=== PATIENT | male | born 1960 | race Caucasian/White ===

== ENCOUNTER 2023-04-27 00:32 | Emergency (ER) | payer OTHER, SELFPAY ==
--- NOTE | ~2023-04-27 | CT_ITS ---
NAME: Willard Miller DATE OF : 64 EXAMINATION: CTA chest PE protocol DATE: 04/27/23 at 3:52 AM INDICATION: Unresponsive. TECHNIQUE: Computed tomography angiography (CTA) of the chest was performed with 100 mL Omnipaque-350 intravenous contrast timed to evaluate the pulmonary arteries. Coronal maximum intensity projection 3D-reconstructions were created by the technologist. Automated exposure control and iterative reconst ruction technique were employed. The dose-length product was 472 mGy-cm. COMPARISON: None. FINDINGS: There is smooth septal thickening in the lungs with an upper lung predominance. There are a irspace and groundglass opacities in the upper lobes and lower lobes with a dependent predominance. T here are groundglass opacities in right middle lobe. No pleural effusion. The heart size is normal. T here are coronary artery calcifications. No pericardial effusion. There is no pulmonary embolus. The endotracheal tube tip is 4.3 cm above the jose. There is mild thoracic spondylosis. IMPRESSION: 1. No pulmonary embolus. 2. Extensive pneumonia in the lungs with a posterior predominance. 3. Mild pulmonary edema. Reviewed, dictated and finalized at location A.
--- NOTE | ~2023-04-27 | CT_ITS ---
NAME: Willard Miller DATE OF : 64 EXAMINATION: CT brain wo con DATE: 04/27/2023 at 3:48 AM INDICATION: Unresponsive. TECHNIQUE: Computed tomography (CT) of the head was performed without intravenous contrast. The mA wa s adjusted according to patient size. Iterative reconstruction technique was employed. The dose-lengt h product was 681 mGy-cm. 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 There is no intracranial hemorrhage, acu te infarction, or abnormal intracranial mass lesion. The ventricles are normal in size. There is muco melissa thickening in the paranasal sinuses. There is thickening and sclerosis of the schofield of the spheno id and right maxillary sinuses. There is sclerosis and erosions of the schofield of the right ethmoid sin uses. These findings are consistent with chronic sinusitis. There is a trace right mastoid effusion. The orbits are normal. IMPRESSION: 1. 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 2. Chronic sinusitis. Reviewed, dictated and finalized at location A.
--- NOTE | ~2023-04-27 | XR_ITS ---
NAME: Willard Miller DATE OF : 64 EXAMINATION: XR chest ET placement DATE: 04/27/23 at 1:53 AM INDICATION: Intubation. TECHNIQUE: A single frontal view of the chest was obtained. COMPARISON: None. FINDINGS: There are airspace and interstitial opacities in all lung zones bilaterally with a perihila r and upper lung predominance. No pleural effusion or pneumothorax. The heart size is normal. The end otracheal tube tip is 7.4 cm above the jose. IMPRESSION: 1. Diffuse lung disease, consistent with a combination of pneumonia and pulmonary edema. 2. Endotracheal tube tip 7.4 cm above the jose. Reviewed, dictated and finalized at location A. IMPRESSION: 1. Diffuse lung disease, consistent with a combination of pneumonia and pulmona ry edema. 2. Endotracheal tube tip 7.4 cm above the jose.
--- NOTE | ~2023-04-27 | XR_ITS ---
Willard Miller 64 04/27/23 2:40 AM EXAMINATION: XR chest 1V portable DATE: 04/27/2023 INDICATION: Intubation. TECHNIQUE: A single frontal view of the chest was obtained on 2 radiographs. COMPARISON: Chest single view at 1:53 AM FINDINGS: There are airspace opacities and interstitial opacities in all lung zones bilaterally with a perihilar and upper lung predominance. No pleural effusion or pneumothorax. The heart size is dali l. The endotracheal tube tip is 8.3 cm above the jose. IMPRESSION: 1. Stable diffuse lung disease, consistent with moderate pulmonary edema versus pneumonia. 2. Endotracheal tube tip 8.3 cm above the jose. Reviewed, dictated and finalized at location A.
--- NOTE | 2023-04-27 01:40 | ECG_ITS ---
Measurements Intervals [place] Rate: 84 P: 53 NV: 138 QRS: -51 QRSD: 105 T: 85 QT: 357 QTc: 422 Interpretive Statements SINUS RHYTHM LEFT AXIS DEVIATION ANTEROSEPTAL INFARCT, AGE INDETERMINATE BORDERLINE ST-T WAVE ABNORMALITY- HIGH LATERAL LEADS BASELINE ARTIFACT- II ,III, AVF, V4-V6 ABNORMAL ECG NO PREVIOUS ECG AVAILABLE FOR COMPARISON Electronically Signed On 04-27-2023 11:12:37 CDT by Reggie Guo D.O.
[2023-04-27 02:10] VITALS: PULSE 84; O2SAT 99
--- NOTE | 2023-04-27 03:57 | ED.CPR ---
HPI - CPR General Stated Complaint: Unresponsive Time Seen by Provider: 04/27/23 03:56 Source: EMS Mode of arrival: EMS Limitations: physical limitation History of Present Illness HPI narrative: This is a 62-year-old male past went into cardiac arrest walked over to EMS facility and collapsed CPR was initiated by EMS staff and patient did respond with a pulse epinephrine was given and the patient was in respiratory distress and was being bagged upon arrival to the emergency department. No known history patient was by himself and did have a and his name was retrieved otherwise on arrival respiratory distress was being bagged and he was in V-tach with a pulse in the ER. Is in respiratory distress and did have elevated in place and the patient was subsequently intubated is placed on a vent. complaint: collapsed during rest Onset (ago): hour(s) Timing confirmed by: other Place: other Bystander CPR performed: Yes AED applied by bystander/welder first class: No Shock advised: No Initial findings in the field: unresponsive Associated injuries: No Associated symptoms: shortness of breath Treatments prior to arrival: chest compressions and epinephrine mgs # Related Data Allergies Allergy/AdvReac Type Severity Reaction Status Date / Time No Known Allergies Allergy Unknown Unverified 12/02/13 12:39 Review of Systems Review of Systems: ROS unobtainable: Yes unobtainable due to medical condition PMFSH Past Medical History Medical History Unknown family medical history Exam Const: General: ill appearing Nutritional Appearance: thin Neck: Neck: normal visual inspection and no lymphadenopathy Chest: Chest palpation & inspection: normal inspection of the chest Resp: Effort & Inspection: tachypneic Auscultation: breath sounds absent Cardio: Rhythm: abnormal rhythm GI: Auscultation: normal bowel sounds Skin: General skin exam: pallor Neuro: General: no focal motor deficits Other: unresponsive Extrem: General: no pedal edema Psych: Other: unresponsive Course Course Emergency Course: patient brought in via EMS initially cardia arrest with CPR initiated at the scene, the patient had an LMA and was being bagged patient on the monitor had a stable blood pressure but his heart rate showed V-tach and amiodarone 150mg was administered, subtotally is heart rate dropped into the 30s and dose of ABO to roll was administered. The patient upon numerous attempts was intubated and placed on a ventilator. Patient had blood work performed which showed that he had blood gases 710 with pCO2 50 with bicarb 15.6 PO2 64, EKG performed after the patient was resuscitated and ventilated and had a rate of 84 was sinus rhythm. White blood cell count was 15 9 lactic acid 9.5 the D-dimer is greater than 30 by time you. Patient started on amiodarone drip, was given dose of Zosyn [address] scan of the brain and CTA performed because of elevated troponin and respiratory distress. patient received 1mg of atropine. Received 150 of amiodarone and currently on propofol 50 mics per kg per minute. Spoke to cloth layer which accepted the patient at [facility] for transfer. Procedures ABG Interpretation ABG Interpretation 1: ABG Results: 7.1 0/ 50/15.6/PO2 of 64 Interpretation: abnormal and respiratory acidosis Intubation Intubation #1: Intubation Date: 04/27/23 Intubation Time: 04:08 Time out performed: Yes sedative: Etomidate Mg Given: 40 paralytic: Succinylcholine Mg Given: 260 Laryngoscope: Raymond Tube Size (cm): 7.0 Method of Intubation: orotracheal Number of Attempts: 3 Tube Secured Depth (cm): 25 Tube Secured Location: lips Tube Placement Confirmation: visualized tube passing through cords Patient Tolerated Procedure: well and no complications C
[2023-04-27 04:00] VITALS: PULSE 71; O2SAT 99
[2023-04-27 04:14] LABS: Alanine Aminotransferase 43 U/L (16-63); Albumin Level 3.3 g/dL (3.4-5.0); Alkaline Phosphatase 175 U/L (46-116); Anion Gap 18 mmol/L (8-16); Aspartate Amino Transferase 73 U/L (15-37); Base Excess ABG -14.2 mmol/L (0-2); Bilirubin,Total 0.5 mg/dL (0.00-1.00); Blood Urea Nitrogen 11 mg/dL (7-18); Calcium 8.7 mg/dL (8.5-10.1); Carbon Dioxide 20 mmol/L (21-32); Chloride 97 mmol/L (98-108); Device VENTILATOR; Estimated Glomerular Filt Rate 48; Glucose 264 mg/dL (70-99); HCO3 ABG 15.6 mmol/L (23-29); Lipase 38 U/L (16-77); Magnesium 2.7 mg/dL (1.8-2.4); Modified Allen's Test Pass; NT Pro B Type Natriuretic Pept 161 pg/mL (0-125); Osmolality Calculated 288 mOsm/kg (285-295); Oxygen Content ABG 19.5 %vol (16.0-22.0); Oxygen Saturation ABG 85.7 % (95-97); Oxyhemoglobin 84.3 % (94-100); PCO2 ABG 50.9 mmHg (35-45); PO2 ABG 64.3 mmHg (80-90); Potassium 3.7 mmol/L (3.5-5.1); Site Drawn RIGHT RADIAL; Sodium 135 mmol/L (136-145); Total Hemoglobin 16.5 g/dL (12.0-18.0); Troponin I 39.3 ng/L (0.00-60.4)
--- NOTE | 2023-04-27 04:22 | PC.NURSE ---
See down time paperwork for pt on arrival per EMS.
[2023-04-27] MEDS: SODIUM CHLORIDE 0.9% IV 1,000 ML 999 ML IV CONT (04:30)
[2023-04-27 04:31] LABS: Basophils Absolute Auto 0.13 K/mm3 (0.00-0.10); Basophils Percent Auto 0.8 % (0.0-1.0); Eosinophils Absolute Auto 0.62 K/mm3 (0.02-0.50); Eosinophils Percent Auto 3.9 % (1.0-6.0); Hematocrit 46.8 % (40.0-54.0); Hemoglobin 14.7 g/dL (14.0-18.0); Immature Granulocyte Percent A 1.9 % (0.0-0.0); Lymphocytes Absolute Auto 2.64 K/mm3 (1.10-4.50); Lymphocytes Percent Auto 16.6 % (18.0-42.0); Mean Corpuscular HGB Conc 31.4 g/dL (32-36); Mean Corpuscular Hemoglobin 30.4 pg (27.0-31.0); Mean Corpuscular Volume 96.9 fL (78.0-102.0); Mean Platelet Volume 9.2 fl (8.7-11.0); Monocytes Absolute Auto 0.85 K/mm3 (0.10-0.90); Monocytes Percent Auto 5.3 % (2.0-11.0); Neutrophils Absolute Auto 11.36 K/mm3 (1.70-7.20); Neutrophils Percent Auto 71.5 % (50.0-70.0); Platelet Count Result 257 K/mm3 (150-420); Prothrombin Time 10.9 Seconds (9.64-11.0); Red Blood Count 4.83 M/mm3 (4.70-6.10); Red Cell Distribution Width 13.9 % (11.6-14.4); White Blood Count 15.9 K/mm3 (4.8-10.8)
[2023-04-27 04:33] LABS: Lactic Acid Reflex 9.5 mmol/L (0.4-2.0)
[2023-04-27 06:53] LABS: Reflex Lactic Acid Yes or No No Lactic Reflex
== END 2023-04-27 05:45 | disposition short-term general hospital (02) ==
PROVIDERS: Emergency Provider Emergency Medicine
DX: I47.20 Ventricular tachycardia, unspecified (principal); R06.03 Acute respiratory distress
CPT/HCPCS: 31500; 36415; 36600; 70450; 71045; 71275; 80053; 82805; 83605; 83690; 83735; 83880; 84484; 85025; 85380; 85610; 85730; 93005; 96365; 96366; 96375; 99291; J0282; J0330; J0461; J2543; J2704; J7030; J7050; Q9967

== ENCOUNTER 2023-04-27 06:30 | Inpatient (IN) | payer OTHER, SELFPAY ==
[2023-04-27] VITALS (76 sets, daily range): BP systolic 78–170; BP diastolic 41–105; PULSE 48–83; RESP 23–35; TEMP 35–37.1; O2SAT 69–99; BMI 22.4
--- NOTE | ~2023-04-27 | XR_ITS ---
EXAMINATION: XR abdomen gastric tube insert DATE: 04/27/2023 07:37 INDICATION: Orogastric tube insertion TECHNIQUE: A supine view of the abdomen and lower chest was obtained for evaluation of feeding tube placement. COMPARISON: None. FINDINGS: Orogastric tube tip in proximal side port in the body of the stomach. There are gas-filled loops of c olon throughout the visualized upper abdomen. Heart size is normal. IMPRESSION: 1. Orogastric tube in the stomach. Reviewed, dictated and finalized at location B.
--- NOTE | ~2023-04-27 | CT_ITS ---
EXAMINATION: CTA UE LT DATE: 04/30/2023 15:51 INDICATION: Left upper extremity ischemia TECHNIQUE: Computed tomographic angiography (CTA) of the left upper extremity was performed with 100 mL Omnipaque 350 intravenous contrast. Automated exposure control and iterative reconstruction techni que were employed. The dose-length product was 1333.88 mGy-cm. COMPARISON: None. FINDINGS: There is a significant amount of relatively dense contrast within the veins of the left upper extremi ty greatest at the hand and forearm and extending along the left cephalic vein near its confluence wi th the left subclavian vein. As before this is disproportionate to the minimal amount of arterial con trast in the abrupt transition from dense contrast to negligible contrast at the distal aspect of the cephalic vein suggests this represents stagnant residual contrast related to the earlier contrast in jection from over one hour prior. Contrast is seen extending from the left subclavian artery through the brachial artery and into the proximal radial, ulnar and both anterior and posterior interosseous arteries although the density of contrast significantly less than is seen in the arteries at the prox imal left thigh which are well opacified. There is no discrete stenosis identified along the contrast opacified portion of the arteries in the left upper arm. There is however abrupt cut off of the radi al artery proximally 7 cm distal to the level of the elbow joint. The remaining ulnar and anterior an d posterior interosseous arteries becoming progressively more atretic in the distal forearm ventrally becoming indiscernible with no evident arterial contrast below the level of the wrist joint. No evid ent contrast other arterial or venous seen in the digits at the palmar aspect of the hand again sugge sting the dense contrast at the dorsum of the hand represents residual contrast from the previous inj ection. Consolidation in the dependent left lower lobe with tree-in-bud opacities throughout the remainder of the left lower lobe and in the posterior left upper lobe consistent with aspiration and/or pneumonia . There is a likely unrelated 9 mm left lower lobe nodule with smooth margins and with less than flui d attenuation consistent with a hamartoma.. Small left pleural effusion. The visualized left side of the heart appears normal with no pericardial effusion. Nasogastric tube tip in the body of the stomac h. 1.1 cm left renal cyst. Incidentally noted circumaortic left renal vein. Small amount of ascites i n the deep pelvis. Garcia catheter and some excreted contrast in the decompressed bladder. A rectal tu be is in place. IMPRESSION: 1. No discernible arterial contrast below the level of the wrist and with prominent residual dense c ontrast in the veins at the dorsum of the hand related to the injection. The absence of washout of th e venous contrast greater than one hour following the injection would be consistent with essentially absent perfusion to the hand. There is abrupt cut off of the arterial contrast in the radial artery p roximal 7 cm distal to the elbow suggesting thrombus. The ulnar and both anterior and posterior inter osseous arteries becoming progressively more atretic with no evident arterial contrast below the wris t without a discrete site of occlusion. 2. Aspiration and/or pneumonia in the left lower and to significantly lesser degree the dependent lef t upper lobe. Reviewed, dictated and finalized at location A. IMPRESSION: 1. No discernible arterial contrast below the level of the wrist and with prom inent residual dense contrast in the veins at the dorsum of the hand related to the injection. The absence of washout of the venous contrast greater than one hour following the injection would be consiste
--- NOTE | ~2023-04-27 | XR_ITS ---
Portable chest x-ray Comparison: 04/29/2023 Clinical History: Respiratory failure Findings: Endotracheal tube, NG tube, and right IJ line are in place. Hazy pulmonary disease, with s lightly more complex disease in the perihilar regions, as similar to prior exam. Cardiomediastinal s ilhouette is stable. Bones and soft tissues are unremarkable. Impression: Mild to moderate presumed pulmonary edema pattern, similar to prior exam. Correlate clinically for pn eumonia. Support tubes, as above. Reviewed, dictated and finalized at location . Impression: Mild to moderate presumed pulmonary edema pattern, similar to prior exam. Corre late clinically for pneumonia. Support tubes, as above.
--- NOTE | ~2023-04-27 | XR_ITS ---
EXAMINATION: XR chest 1V portable DATE: 04/27/2023 07:37 INDICATION: Assess endotracheal tube placement TECHNIQUE: frontal view of the chest was obtained. COMPARISON: Chest radiograph dated 04/27/2023 at 2:39 AM FINDINGS: Endotracheal tube tip 7.5 cm above the jose. Nasogastric tube extends below the left hemidiaphragm with distal tip collimated off the study. Diffuse diffuse bilateral airspace opacities with perihilar predominance. No pleural effusion or pneu mothorax. The cardiomediastinal silhouette is normal. IMPRESSION: 1. The tracheal tube 7.5 cm above the jose. Consider advancement by 5 cm. 2. Diffuse bilateral airspace opacities with appearance on prior CT favoring pneumonia over atelectas is. Reviewed, dictated and finalized at location B. IMPRESSION: 1. The tracheal tube 7.5 cm above the jose. Consider advancement by 5 cm. 2. Diffuse bilateral airspace opacities with appearance on prior CT favoring pn eumonia over atelectasis.
--- NOTE | ~2023-04-27 | XR_ITS ---
EXAMINATION: XR chest port-a-cath/central DATE: 04/27/2023 11:04 INDICATION: Central line placement TECHNIQUE: frontal view of the chest was obtained. COMPARISON: Chest radiograph dated 04/27/2023 at 7:20 AM FINDINGS: New right internal jugular central venous catheter with distal tip near the superior cavoatrial junct ion. Endotracheal tube tip 7.3 cm above the jose. Nasogastric tube extends below the left hemidiap hragm with distal tip collimated off the study. Diffuse bilateral airspace opacities with perihilar predominance. No pleural effusion or pneumothorax . Heart size is normal. IMPRESSION: 1. Right internal jugular central venous catheter tip at the caudal superior vena cava. No pneumothor ax. 2. Diffuse central predominant bilateral airspace opacities consistent with pneumonia. 2. Endotracheal tube tip 7.3 cm above the jose. Consider advancement by 5 cm. Reviewed, dictated and finalized at location B. IMPRESSION: 1. Right internal jugular central venous catheter tip at the caudal superior ve na cava. No pneumothorax. 2. Diffuse central predominant bilateral airspace opacities consistent with pne umonia. 2. Endotracheal tube tip 7.3 cm above the jose. Consider advancement by 5 cm.
--- NOTE | ~2023-04-27 | XR_ITS ---
EXAMINATION: XR chest 1V portable Exam Date/Time: 04/29/2023 8:30 CDT HISTORY: Resp Failure Comparison: 04/28/2023. RESULT: Lines, tubes, and devices: Endotracheal tube terminates 5.1 cm above the jose. Subdiaphragmatic NG tube. Right IJ central venous line terminating at the cavoatrial junction. Lungs and pleura: Slightly increased diffuse reticular and reticulonodular opacities. Left lower lauren g nodule. Cardiomediastinal silhouette: Stable. Other: No acute osseous or upper abdominal finding. IMPRESSION: Worsening moderate pulmonary edema. Infection is not excluded. Lines and tubes remain in stable and g ood position. Left lower lung nodule, prior recommendations are unchanged. Reviewed, dictated and finalized at location K. IMPRESSION: Worsening moderate pulmonary edema. Infection is not excluded. Lines and tubes remain in stable and good position. Left lower lung nodule, prior recommendations are unchanged.
--- NOTE | ~2023-04-27 | XR_ITS ---
Portable chest x-ray Comparison: 04/30/2023 Clinical History: Respiratory failure Findings: Endotracheal tube, NG tube, and right IJ line remain in place. Right perihilar consolidati on present, with more mild haziness the left lung base. Cardiomediastinal silhouette is stable. Bone s and soft tissues are unremarkable. Impression: Bilateral pulmonary disease, right worse than left, which could reflect pulmonary edema versus pneumo silva. Correlate clinically. Support tubes, as above. Reviewed, dictated and finalized at location . Impression: Bilateral pulmonary disease, right worse than left, which could reflect pulmona ry edema versus pneumonia. Correlate clinically. Support tubes, as above.
--- NOTE | ~2023-04-27 | XR_ITS ---
EXAMINATION: XR chest 1V portable DATE: 04/28/2023 09:03 INDICATION: Respiratory failure TECHNIQUE: frontal view of the chest was obtained. COMPARISON: Chest radiograph dated 04/27/2023 FINDINGS: Endotracheal tube tip 5.8 cm above the jose. Nasogastric tube extends below the left hemidiaphragm with distal tip collimated off the study. Right internal jugular central venous catheter with distal tip at the caudal superior vena cava. Diffuse increased interstitial pattern throughout both lungs with some improvement in the perihilar a irspace opacities. 1 cm pulmonary nodule at the left lower lung which can be seen but is distorted on the prior CT by respiratory motion. No pleural effusion or pneumothorax. The cardiomediastinal silho uette is normal. Visualized bones and soft tissues are unremarkable. IMPRESSION: 1. Diffuse increased interstitial pattern with interval improvement in perihilar opacities consistent with improving pneumonia and/or pulmonary edema. 2. 1 cm pulmonary nodules at the left lower lung zone assessment of which is limited on the prior nash dy by respiratory motion. Recommend follow-up noncontrast chest CT for further evaluation when the cu rrent acute pulmonary disease has resolved. Reviewed, dictated and finalized at location A. IMPRESSION: 1. Diffuse increased interstitial pattern with interval improvement in perihila r opacities consistent with improving pneumonia and/or pulmonary edema. 2. 1 cm pulmonary nodules at the left lower lung zone assessment of which is li mited on the prior study by respiratory motion. Recommend follow-up noncontrast chest CT for further evaluation when the current acute pulmonary disease has r esolved.
--- NOTE | ~2023-04-27 | CT_ITS ---
CT Scan of the Chest without Contrast: Clinical Indication: Respiratory failure Technique: Contiguous sections were acquired throughout the chest without intravenous contrast. Dose reduction technique was used on this scan by utilizing automated exposure control and iterative recon struction technique. The dose-length product (DLP) was 257.34 mGy-cm. Findings: There is no evidence of any significant mediastinal, hilar or axillary lymphadenopathy. The mediastin al soft tissues appear normal. There is no evidence of pleural or pericardial effusion. There is extensive dense bilateral lower lobe consolidation, compatible with pneumonia and/or atelect asis. There is patchy, somewhat nodular consolidation throughout the aerated right lung and in the ar ea of superior portion of the left lower lobe, consistent with pneumonia. There is a more discrete 1 cm left lower lobe pulmonary nodule (axial image 93), indeterminate. Images through the upper abdomen reveal no abnormalities. Impression: Extensive right lung and left lower lobe pneumonia with associated dense bibasilar atelectasis and/or additional pneumonia. More discrete 1 cm left lower lobe pulmonary nodule, indeterminate. Follow-up exam after interval the rapy advised to assess for persistence of this nodule. If this nodule persists, tissue sampling or PE T/CT could be considered. Reviewed, dictated and finalized at location . Impression: Extensive right lung and left lower lobe pneumonia with associated dense bibasi lar atelectasis and/or additional pneumonia. More discrete 1 cm left lower lobe pulmonary nodule, indeterminate. Follow-up e xam after interval therapy advised to assess for persistence of this nodule. If this nodule persists, tissue sampling or PET/CT could be considered.
--- NOTE | 2023-04-27 05:28 | PC.NURSE ---
04/27/23 0505 Report received from THERESA Peña.
[2023-04-27] MEDS: NOREPINEPHRINE 8 MG/D5W 250 ML 8 MG/250 ML BAG 9.38 MG IV CONT (06:50)
--- NOTE | 2023-04-27 06:51 | ECHO_ITS ---
Patient Info Name: Willard Miller Age: 62 years : 1960 Gender: Male Ht: 71 in Wt: 160 lbs BSA: 1.91 m2 HR: 70 bpm BP: 90 / 66 mmHg Heart Rhythm: Sinus Rhythm Technical Quality: Fair Exam Date: 04/27/2023 11:09 AM Exam Location: Echo Lab Patient Status: Inpatient Admit Date: 04/27/2023 Staff Ordering Physician: Rigo Abbott MD [employer] Strand Operator: Phyllis Ennis RDCS Attending Provider: Rubén Broussard MD Exam Type: CA echo dop color flow w con Study Info Indications - post arrest Complete two-dimensional, color flow and Doppler transthoracic echocardiogram is performed with contrast to opacify the left ventricle and to improve the deliniation of the left ventricle endocardial borders. Contrast/Agitated Saline Contrast/Ag. Saline: Definity Amount: 2.00 ml Administered By: Phyllis Ennis RDCS Existing IV Access: Yes IV Access Condition: patent with no signs of infiltration Summary 1. Technically somewhat challenging exam with patient on ventilator, definity contrast injected. 2. Normal appearing will left ventricular size and systolic contractility with normal ejection fraction. 3. Mildly sclerotic aortic valve otherwise no significant valvular dysfunction. 4. No pericardial. Left Ventricle Left ventricular chamber dimension is normal. Left ventricular systolic function is normal, estimated at 65-70%. The left ventricular diastolic function is normal. Right Ventricle Right ventricular chamber dimension is normal. Right ventricular systolic function is normal. Left Atria Left atrial chamber dimension is normal. Right Atria Right atrial chamber dimension is normal. Aortic Valve The aortic valve is trileaflet. There is mild aortic valve sclerosis. Pulmonic Valve The pulmonic valve is normal. Mitral Valve The mitral valve has normal leaflets. Tricuspid Valve The tricuspid valve leaflets are normal. Pericardium/Pleural The pericardium appears normal. Aorta The aortic root size at the sinus of Valsalva is normal. Left Ventricular Outflow Tract Name Value Normal LVOT 2D LVOT Diameter 1.97 cm LVOT Doppler LVOT Peak Gradient 2 mmHg LVOT Mean Gradient 1 mmHg LVOT VTI 7.89 cm LVOT VTI/AV VTI Ratio 0.89 LVOT Stroke Volume 24.05 ml LVOT CO 1.61 l/min LVOT CI 0.85 L/min/m2 Pulmonic Valve Name Value Normal RVOT Doppler RVOT Peak Gradient 2 mmHg PV Doppler PV Peak Gradient 3 mmHg Mitral Valve Name Value Normal
[2023-04-27] MEDS: FENTANYL 2,500MCG/NS250ML(*CRX 2,500 MCG/250 ML BAG IV CONT (06:58)
--- NOTE | 2023-04-27 07:00 | ECG_ITS ---
Measurements Intervals [place] Rate: 48 P: AR: 0 QRS: -52 QRSD: 91 T: -84 QT: 475 QTc: 427 Interpretive Statements JUNCTIONAL ESCAPE RHYTHM LEFT AXIS DEVIATION PATTERN CONSISTENT WITH PULMONARY DISEASE CANNOT RULE OUT SEPTAL INFARCT, AGE INDETERMINATE BORDERLINE ST-T WAVE ABNORMALITY- INFERIOR LEADS BASELINE ARTIFACT- I, II, III, AVR, AVL, AVF, V1, V3-V6 ABNORMAL ECG COMPARED TO ECG 04/27/2023 02:28:09 JUNCTIONAL ESCAPE RHYTHM NOW PRESENT Electronically Signed On 04-27-2023 11:09:18 CDT by Reggie Guo D.O.
[2023-04-27] MEDS: MIDAZOLAM HCL (*CRX) 2 MG/2 ML VIAL 4 MG IV PUSH (07:20)
[2023-04-27 07:36] LABS: INR 1.2; Prothrombin Time 15.6 Seconds (11.1-14.7)
[2023-04-27 07:37] LABS: Partial Thromboplastin Time 30.4 Seconds (22.3-36.8)
[2023-04-27 07:41] LABS: Lactic Acid Reflex 3.1 mmol/L (0.7-2.0)
[2023-04-27 07:45] LABS: Hematocrit 52.6 % (42.0-52.0); Hemoglobin 16.7 g/dL (14.0-18.0); Mean Corpuscular HGB Conc 31.7 g/dl (32-36); Mean Corpuscular Hemoglobin 30.9 pg (26-34); Mean Corpuscular Volume 97.4 fl (80-100); Mean Platelet Volume 8.9 fl (7.4-10.4); Platelet Count Result 254 k/mm3 (150-375); Red Cell Distribution Width 14.4 % (11.5-14.5); White Blood Count 2.3 K/mm3 (4.5-10.0)
[2023-04-27] MEDS: SODIUM BICARBONATE 8.4% 50 MEQ/50 ML SYRINGE 100 MEQ IV PUSH ×2 (07:45→15:50)
[2023-04-27 07:49] LABS: Alanine Aminotransferase 45 U/L (6-50); Albumin Level 3.2 g/dL (3.5-5.1); Alkaline Phosphatase 132 U/L (38-126); Anion Gap 10 mmol/L (8-16); Aspartate Amino Transferase 98 U/L (17-59); Bilirubin,Total 1.3 mg/dL (0.2-1.3); Blood Urea Nitrogen 19 mg/dL (9-20); Calcium 7.8 mg/dL (8.4-10.2); Carbon Dioxide 12 mmol/L (22-30); Chloride 108 mmol/L (98-107); Creatine Kinase 409 U/L (55-170); Estimated Glomerular Filt Rate 52; Glucose 133 mg/dL (65-110); Magnesium 2.1 mg/dL (1.6-2.3); Potassium 4.5 mmol/L (3.4-5.0); Sodium 130 mmol/L (137-145)
[2023-04-27] MEDS: MIDAZOLAM 100MG/NS 100ML(*CRX) 100 MG/100 ML BAG IV CONT (07:51)
[2023-04-27 07:58] LABS: Alveolar/Arterial O2 Gradient 632.1 mmHg; Base Excess ABG -12.8 mEq/l (+/-2.0); Carboxyhemoglobin 0.3 % THb (0-2.0); Fractional Inspired Oxygen 100 %; HCO3 ABG 15.3 mEq/l (22.0-26.0); Methemoglobin ABG 0.6 %THb (0-1.5); Oxygen Content ABG 19.8 %vol (16.0-22.0); PCO2 ABG 42.3 mmHg (35.0-45.0); PO2 ABG 50.1 mmHg (80.0-100.0); Reduced Hemoglobin 20.2 %THb (0-5.0); Total Hemoglobin 17.9 g/dL (12.0-18.0)
[2023-04-27 08:00] LABS: Oxygen Saturation ABG 75.9 % (95.0-100.0); pH ABG 7.175 (7.350-7.450)
[2023-04-27 08:01] LABS: Device VENTILATOR; Oxyhemoglobin 78.9 % THb (90.0-100.0); Site Drawn LEFT RADIAL
[2023-04-27 08:02] LABS: Arterial Blood Gas PEEP 8 cmH2O; Arterial Blood Gas Tidal Volume 500 ml; Arterial Blood Gas Vent Mode CMV; Arterial Blood Gas Ventilator rate 18 /MIN
[2023-04-27 08:46] LABS: NT Pro B Type Natriuretic Pept 484 pg/mL (19.9-100)
--- NOTE | 2023-04-27 08:58 | ADMGEN ---
This patient, Willard Miller, was admitted to Intensive Care Unit-2 on 04/27/23 at 0615. Patient/family oriented to hospital policies and general routines including ID bracelet, bed and alarms, visiting hours, pain management, procedures, bathroom and other care routines, personal items, smoking policy, room service/diet, and visiting hours. Information on how to activate the Rapid Response Team has been discussed. Patient/Family are encouraged to report perceived risks to care and to ask questions if they do not understand what they are told or what they should do.
[2023-04-27] MEDS: SODIUM BICARBONATE 8.4% 150 MEQ in WATER, STERILE FOR INJECTION 950 ML 50 MEQ IV CONT ×2 (09:00→21:06)
[2023-04-27] MEDS: PIPERACILLN/TAZ 3.375GM/NS50ML 3.375 GM/50 ML BAG IVPB ×3 (09:00→21:05)
[2023-04-27] MEDS: VASOPRESSIN INJ 100 UNITS in DEXTROSE 5% 95 ML IV CONT (09:01)
[2023-04-27] MEDS: SODIUM BICARBONATE 8.4% 50 MEQ/50 ML SYRINGE IV PUSH (09:06)
[2023-04-27] MEDS: ROCURONIUM BROMIDE 50 MG/5 ML VIAL IV PUSH (09:06)
[2023-04-27] MEDS: PANTOPRAZOLE SODIUM IV 40 MG VIAL IV PUSH ×2 (09:06→22:03)
[2023-04-27] MEDS: MINERAL OIL/WHITE PETROLATUM OINTMENT 1 APPLIC EACH EYE ×2 (09:07→22:04)
[2023-04-27 09:10] LABS: Procalcitonin 16.8 ng/mL
[2023-04-27] MEDS: HYDROCORTISONE SODIUM SUCCINATE 100 MG/2 ML VIAL IV PUSH ×3 (09:31→22:04)
[2023-04-27 09:55] LABS: Barbiturate Screen Urine Negative (Negative); Benzodiazepines Screen Urine Positive (Negative)
[2023-04-27 09:56] LABS: Amphetamine Screen Urine Positive (Negative); Cannabinoid Screen Urine Positive (Negative); Cocaine Screen Urine Negative (Negative); Methadone Screen Urine Negative (Negative); Opiate Screen Urine Negative (Negative)
[2023-04-27 10:19] LABS: Cortisol Random 8.59 ug/dL; Phencyclidine Screen Urine Negative (Negative)
[2023-04-27 10:24] LABS: Base Excess ABG -8.3 mEq/l (+/-2.0); Fractional Inspired Oxygen 100 %; HCO3 ABG 21.3 mEq/l (22.0-26.0); Oxygen Content ABG 18.5 %vol (16.0-22.0); PCO2 ABG 59.7 mmHg (35.0-45.0); PO2 ABG 50.7 mmHg (80.0-100.0); PO2 FiO2 Ratio Arterial Blood 0.51 %; Total Hemoglobin 16.7 g/dL (12.0-18.0)
[2023-04-27 10:33] LABS: Oxygen Saturation ABG 75.5 % (95.0-100.0)
[2023-04-27 10:34] LABS: Device VENTILATOR; Oxyhemoglobin 78.8 % THb (90.0-100.0); Site Drawn LEFT RADIAL
[2023-04-27 10:35] LABS: Arterial Blood Gas PEEP 12 cmH2O; Arterial Blood Gas Vent Mode CMV; Arterial Blood Gas Ventilator rate 25 /MIN
[2023-04-27 10:36] LABS: Arterial Blood Gas Tidal Volume 450 ml
--- NOTE | 2023-04-27 10:58 | WPDPROCEDUR ---
Procedures Central Line Placement Right IJ: Central Line Date: 04/27/23 Central Line Time: 09:00 Discussed w/ the patient/family/POA,the placement of a central venous catheter, including its clinical necessity/indication & associated potential risks, benifits and alternatives.: Yes The patient/family/POA understand(s) and acknowledge(s) the need to proceed with central venous catheter insertion as an important element of the patient's clinical management.: Yes Consent: I have discussed with the patient and/or surrogate, the non-emergent placement of a central venous catheter, including its clinical necessity/indication and associated potential risks and complications. The patient and/or surrogate understand(s) and acknowledge(s) the need to proceed with central venous catheter insertion as an important element of the patient's clinical management. Time Out Performed: Yes Patient Position: supine Patient placed on monitor/pulse ox: Yes Provider Prep: mask, sterile gown, sterile gloves, Max. sterile barrier precautions, cap and hand hygiene with conventional soap/water or alcohol based hand rub Central line prep: Povidone-Iodine 1% Sterile US Technique with sterile gel/sterile probe covers: Yes Central line lumen inserted: triple Length (cm): 20 Depth of Insertion (cm): 18 Post Procedure: sutured in place, good blood return, all ports aspirated, flushed, capped, transparent dressing, antimicrobial product and aseptic technique maintained throughout procedure Post procedure x-ray: tip of catheter in good position Patient tolerated procedure: well Complications: none
[2023-04-27 11:11] LABS: Free T4 Free Thyroxine Reflex 0.53 ng/dL (0.78-2.19)
--- NOTE | 2023-04-27 11:12 | WPDCNINT ---
Assessment and Plan Assessment and plan (1) Cardiac arrest: Code(s): I46.9 - Cardiac arrest, cause unspecified Status: Acute Assessment and Plan: It appears the patient presented and EMS facility and collapsed. Received CPR and epinephrine. No documentation available and unknown down time. When arrived in the ER he was being bag ventilated V-tach with pulse. Difficult intubation and required multiple times. Received amiodarone push which bled to sinus bradycardia which was treated with atrial pain. Since then patient has been in sinus rhythm with intermittent junctional bradycardia. He has had runs of V-tach in the ER and in the ICU. Differential diagnosis is broad. CTA negative for PE Serial troponins and echocardiogram ordered Aspirin anticoagulation held due to GI bleed Beta-gail held due to shock Amiodarone infusion was initiated but stopped due to worsening bradycardia and junctional bradycardia Cardiology consulted and discussed with Cardiology Echo is ordered and pending Treatment of sepsis and pneumonia as below Urine drug screen positive for cocaine. Patient also has heavy alcohol use history and may have cardiomyopathy Treatment of respiratory failure and hypoxia as below TTM protocol for anoxic brain injury Treatment of acidosis as below Monitor and treat electrolyte abnormalities (2) Acute respiratory failure: Code(s): J96.00 - Acute respiratory failure, unspecified whether with hypoxia or hypercapnia Status: Acute Assessment and Plan: Acute respiratory failure secondary to cardiac arrest aspiration pneumonia CT scan was negative for PE Ventilator settings reviewed and will increase rate to 28 and tidal volume is at 4:50 a.m. Patient is significantly hypoxic and is currently on 100% FiO2. I will start patient on Nimbex infusion Peep increased to [address] patient in prone position Bronchodilators (3) Sepsis: Code(s): A41.9 - Sepsis, unspecified organism Status: Acute Assessment and Plan: Sepsis secondary to aspiration pneumonia UA negative for UTI Procalcitonin 16.8 Blood cultures have been ordered and sent Empiric Zosyn (4) V tach: Code(s): I47.20 - Ventricular tachycardia, unspecified Status: Acute Assessment and Plan: See above (5) Aspiration pneumonia: Code(s): J69.0 - Pneumonitis due to inhalation of food and vomit Status: Acute Assessment and Plan: Patient vomited on presentation now has bilateral consolidation suggestive of pneumonia which is likely aspiration Treatment as above (6) Shock: Code(s): R57.9 - Shock, unspecified Status: Acute Assessment and Plan: Patient likely has a multifactorial shock secondary to sepsis and cardiogenic Patient had received more than 3.5 L of fluid prior to coming to the ICU. He does have worsening infiltrate and hypoxia Will limit further fluid boluses at this time and use cautious IV fluids with bicarbonate Continue Levophed vasopressin and if needed epinephrine Stress dose hydrocortisone Treat acidosis Due to worsening shock and bradycardia patient's goal temperature was changed from 33-36 degrees C for therapeutic hypothermia. Amiodarone has also been discontinued due to bradycardia and worsening shoc (7) Hypothyroidism: Code(s): E03.9 - Hypothyroidism, unspecified Status: Acute Assessment and Plan: Patient's TSH was 81.7 T4 0.53 Patient does not have any known history of hypothyroidism and does not appear to be in myxedema coma Will start levothyroxine at 50 mcg IV q.day Will also start hydrocortisone for shock and low cortisol level (8) Anoxic brain injury: Code(s): G93.1 - Anoxic brain damage, not elsewhere classified Status: Acute Assessment and Plan: I am not sure how long was a down time as I was not able to obtain that information ER or EMS but patient when arrived in the ER was obtunded and claire
[2023-04-27] MEDS: CISATRACURIUM BESYLATE 200 MG in DEXTROSE 5% 80 ML 6.57 ML IV CONT (11:38)
[2023-04-27 11:44] LABS: Glucose Point of Care 117 mg/dl (65-105)
--- NOTE | 2023-04-27 11:44 | PM.CNCAR ---
Assessment and Plan Assessment and plan (1) Cardiac arrest: Code(s): I46.9 - Cardiac arrest, cause unspecified Status: Acute Plan This is a 62-year-old man status post ventricular tachycardia arrest and resuscitation with difficult intubation in the referring hospital's emergency room. He is unresponsive on ventilator support and requiring pressor support at this time. His cardiac rhythm looks like a junctional rhythm with a heart rate that is in the high 50s and low 60s. This is a hemodynamically acceptable rhythm. His laboratory data is remarkable for obvious hypothyroidism with a very high TSH and low T4 level. He is a gentleman that does not otherwise seek medical attention he according to the family smokes heavily and drinks alcohol heavily as well. His labs also showed his drug screen was positive for both cocaine and marijuana. At this point aggressive supportive care is indicated which is already being provided. He at this point does not require any specific antiarrhythmic therapy and in my opinion does not require a pacemaker as his junctional rhythm is not slow and he is hemodynamically perfusing well at this point. His prognosis for recovery is obviously in question since he was in VT arrest for some time and his intubation in the emergency department was rather difficult. Unfortunately a significant significant anoxic brain injury is likely to be present James Forbes MD [facility] History of Present Illness History of Present Illness Consult date/time: 04/27/23 11:44 Reason For Visit: Unknown Narrative: This is a 62-year-old man I am seeing at the request of the resource recovery specialist for consultation following resuscitation from cardiac arrest. The history on this case is not entirely complete however what we know is that he was transferred here this morning after being resuscitated out of ventricular tachycardia in the emergency room up in [place]. The family in terms of the mother and the sister are in the room are with me at this time they indicate he lives next door to a EMS facility and that he went there in the middle of the night reporting symptoms of dyspnea. Apparently while he was there he collapsed and experienced cardiac arrest. The chart indicates that he was brought to the emergency room in [place] and was in ventricular tachycardia at that time. According to the records he received intravenous amiodarone in the emergency room after which she was in a narrow QRS rhythm but was bradycardic received some atropine. Then there was a somewhat prolonged effort to intubate the this patient when he was successfully intubated he was then transferred to [facility] for further evaluation and management. His electrocardiogram now shows what appears to be a junctional rhythm with a heart rate of 60 and he is receiving pressure support as well as cooling blanket per protocol. He is intubated on ventilator support and is unresponsive. Review of Systems Review of Systems: ROS unobtainable: Yes unobtainable due to endotracheal tube PMFSH Past Medical History Medical History (Updated 04/27/23 @ 11:34 by Rigo Abbott MD) Cancer of sinus History of radiation therapy Unknown family medical history Family History Family History (Updated 04/27/23 @ 11:19 by Rigo Abbott MD) Other Unknown family medical history Social History Social History (Updated 04/27/23 @ 11:19 by Rigo Abbott MD) Social History: Smokes 1-2 pack per day for more than 40 years, drinks alcohol daily, uses marijuana, past history of cocaine use Meds Home Medications and Allergies Allergies Allergy/AdvReac Type Severity Reaction Status Date / Time No Known Allergies Allergy Unknown Unverified 12/02/13 12:39 Vital Signs Vital Signs - 24 hr 04/27/23 07:00 04/27/23 07:42 04/27/23 06:58 Temperature Pulse Rate 50 L 59 L 50 L Respiratory Rate 26 H Blood Pressure Pulse Oximetry 92 70 L Oxygen Delivery Mec
[2023-04-27] MEDS: CISATRACURIUM BESYLATE 20 MG/10 ML VIAL 15 MG IV PUSH (11:46)
[2023-04-27] MEDS: NOREPINEPHRINE 8 MG/D5W 250 ML 8 MG/250 ML BAG 56.25 MG IV CONT (11:46)
--- NOTE | 2023-04-27 11:47 | ECG_ITS ---
Measurements Intervals [place] Rate: 68 P: [place]: 0 QRS: 82 QRSD: 103 T: -5 QT: 442 QTc: 471 Interpretive Statements ACCELERATED JUNCTIONAL RHYTHM CANNOT RULE OUT SEPTAL INFARCT, AGE INDETERMINATE ST-T WAVE ABNORMALITY IN INF/LAT LEADS- CONSIDER ISCHEMIA ABNORMAL ECG COMPARED TO ECG 04/27/2023 06:58:10 HEART RATE HAS INCREASED ST-T WAVE ABNORMALITY NOW PRESENT Electronically Signed On 04-27-2023 13:17:51 CDT by Reggie Guo D.O.
--- NOTE | 2023-04-27 12:08 | PCDIET ---
Patient currently NPO. Tube feeding recommendations: Vital AF 1.2 at 20 ml/hr advance by 10 ml q 4 hours to goal rate of 50 ml/hr. Tube feedings at 50 ml/hr providing 1320 kcals/83 gms protein/892 ml water. (~70% kcal needs and 94% protein needs) Flush 30 ml q 4 hours. Will follow in ICU rounds and reassess every Sunday and Sunday.
[2023-04-27] MEDS: PERFLUTREN LIPID MICROSPHERES 1.5 ML VIAL DILUTED TO 10 ML TOTAL VOLUME IV PUSH (12:45)
--- NOTE | 2023-04-27 13:02 | IVDEFINITY ---
Prior to administration of IV Definity the patient was educated on the risks and benefits of the imaging enhancing agent including potential adverse side effects. The patient verbalized understanding. Allergies were verified. No exclusion criteria were identified and at least one of the following inclusion criteria were met: 1) physician request, 2) patient technically difficult to image (per the [place] [employer]chocardi[employer] guidelines of two or more segments not discernable within the apical view), or 3) questionable left ventricular function. ?
[2023-04-27] MEDS: LEVOTHYROXINE SODIUM INJ 100 MCG/5 ML VIAL 50 MCG IV PUSH (13:04)
[2023-04-27] MEDS: CENTRAL LINE FLUSH 10 ML IV PUSH ×2 (13:06→22:04)
[2023-04-27 13:24] LABS: Hematocrit 47.9 % (42.0-52.0); Hemoglobin 15.4 g/dL (14.0-18.0); Mean Corpuscular HGB Conc 32.2 g/dl (32-36); Mean Corpuscular Hemoglobin 30.6 pg (26-34); Mean Corpuscular Volume 95.2 fl (80-100); Mean Platelet Volume 8.8 fl (7.4-10.4); Platelet Count Result 178 k/mm3 (150-375); Red Blood Count 5.03 M/mm3 (4.6-6.20); Red Cell Distribution Width 14.5 % (11.5-14.5); White Blood Count 2.3 K/mm3 (4.5-10.0)
[2023-04-27 13:36] LABS: Creatine Kinase 404 U/L (55-170)
[2023-04-27 13:37] LABS: Anion Gap 6 mmol/L (8-16); Blood Urea Nitrogen 24 mg/dL (9-20); Calcium 7.1 mg/dL (8.4-10.2); Carbon Dioxide 24 mmol/L (22-30); Chloride 104 mmol/L (98-107); Estimated CRCL calculation 41 ml/min; Estimated Glomerular Filt Rate 39; Glucose 149 mg/dL (65-110); Magnesium 2.2 mg/dL (1.6-2.3); Phosphorus 6.9 mg/dL (2.5-4.5); Potassium 3.6 mmol/L (3.4-5.0); Sodium 134 mmol/L (137-145)
[2023-04-27 13:42] LABS: Lactic Acid Reflex 4.7 mmol/L (0.7-2.0)
[2023-04-27] MEDS: CALCIUM GLUC 2,000 MG/NS 100ML 2,000 MG/100 ML BAG 100 MG IVPB (14:15)
[2023-04-27] MEDS: ALBUMIN HUMAN 5% 25 GM/500 ML BTL IV CONT (14:24)
[2023-04-27] MEDS: SODIUM CHLORIDE 0.9% IV 1,000 ML 3 ML (14:37)
--- NOTE | 2023-04-27 14:39 | WPDPROCEDUR ---
Procedures Arterial Line Arterial Line Date: 04/27/23 Arterial Line Time: 14:00 Perfomed Emergently - Given emergent patient conditions, temporal constraints may have precluded informed consent: Yes Time Out Performed: Yes Patient Position: other (Prone) Customer Resource Specialist Prep: sterile gloves and mask Site: left Site Prep: chlorhexidine and sterile drape Technique used: ultrasound-guided Length: 4.4 cm Closure/Dressing: suture and transparent dressing Patient tolerated procedure: well Complications: none Additional comments: Patient on multiple vasopressors and in prone position respiratory failure. Unable to get reliable noninvasive blood pressure, epinephrine infusion was added. Patient also needs frequent ABGs. Patient was in prone position and only left radial site was available. Art line done emergently as medical necessity without any complication.
[2023-04-27] MEDS: POTASSIUM CHLORIDE 20 MEQ PACKET (FOR LIQUID) 40 MEQ FEED TUBE (14:41)
--- NOTE | 2023-04-27 15:31 | PM.IMHP ---
H&P: HPI History of Present Illness Date/Time: 04/27/23 15:31 Chief Complaint: Loss of consciousness s/p Cardiac arrest shortness of breath Narrative: Willard Miller is a 62 year old male with past medical history of sinus cancer status post surgery and radiation and HTN. He while experiencing shortness of breath and chest pain[facility] while [facility] was being [facility], lost consciousness and collapsed. He apparently received CPR and epinephrine and was bag ventilated to ER in Echo.? Recorded waveform was ventricular tachycardia and had pulse is although he was in respiratory distress and was bagged.? Intubated with difficulty and had large amount of vomitus.? Post intubation he went into shock.? Work-up findings CT scan of the head was unremarkable and CT chest done in the ER showed bilateral diffuse consolidation.? Urine drug screen was positive for cocaine.? EKG did not show any ST elevation.? UA was negative for any signs of infection.? CTA of the chest was negative for PE.? D-dimer of 35.2.? ABG showed 7.10/51/64/10.6.? Creatinine 1.49 blood sugar 264.? He was started on Zosyn was given fluids and [facility] [place] [facility] On arrival patient was on Levophed had peripheral IV access and IO he was on 100% FiO2 unresponsive and sedated In the ICU patient was started on therapeutic hypothermia protocol.? He had received cold saline in the ER and his temperature was close to the goal.? He developed significant bradycardia with heart rate in 40s and junctional rhythm and worsening of shock leading to discontinue fernández of cooling temporally and raising his temperature above to 95 for and had which helped with improvement in his heart rate to 50s and 60s and back into sinus rhythm.? Amiodarone was discontinued.? V-tach has been replaced by sinus rhythm with normal rate Per family members, the patient does not seek any healthcare and does not see any doctor.? He smokes 1-2 pack per day and has been smoking for more than 40 years.? He also drinks alcohol heavily and uses marijuana.? Not aware of any cocaine use at this time although they admitted the patient did use cocaine in the past.? He has a history of sinus cancer for which he received radiation and procedure [facility] they are not aware of any other medical problem.? He has been found to be hypertensive in the past but refused medical therapy. At the bedside, he is intubated and sedated; unresponsive. evidence of dark vomitus around mouth; He is sedated and unresponsive.? He is unable to provide any further history and history was obtained from chart ED physician sign-out and patient's family at bedside Review of Systems Review of Systems: ROS unobtainable: Yes unobtainable due to endotracheal tube, unobtainable due to medical condition and unobtainable due to mental status PMFSH Past Medical History Medical History (Updated 04/27/23 @ 11:34 by Rigo Abbott MD) Cancer of sinus History of radiation therapy Unknown family medical history Family History Family History (Updated 04/27/23 @ 11:19 by Rigo Abbott MD) Other Unknown family medical history Social History Social History (Updated 04/27/23 @ 11:19 by Rigo Abbott MD) Social History: Smokes 1-2 pack per day for more than 40 years, drinks alcohol daily, uses marijuana, past history of cocaine use Smoking status: Current every day smoker Spiritual care concerns: No Meds Home Medications and Allergies Home Medications Medication Instructions Recorded Confirmed Type No Home Medications 04/27/23 04/27/23 History Allergies Allergy/AdvReac Type Severity Reaction Status Date / Time No Known Allergies Allergy Unknown Verified 04/27/23 13:35 Vital Signs Vital Signs - 24 hr 04/27/23 07:00 04/27/23 07:42 04/27/23 06:58 Temperature Pulse Rate 50 L 59 L 50 L Respiratory Rate 26 H Blood Pressure Pulse
[2023-04-27 15:32] LABS: Alveolar/Arterial O2 Gradient 510.5 mmHg; Base Excess ABG -9.1 mEq/l (+/-2.0); Fractional Inspired Oxygen 100 %; HCO3 ABG 19.5 mEq/l (22.0-26.0); Oxygen Content ABG 20.6 %vol (16.0-22.0); Oxygen Saturation ABG 98.5 % (95.0-100.0); Oxyhemoglobin 97.7 % THb (90.0-100.0); PO2 ABG 155.9 mmHg (80.0-100.0); PO2 FiO2 Ratio Arterial Blood 1.56 %; Total Hemoglobin 14.8 g/dL (12.0-18.0)
[2023-04-27 15:39] LABS: pH ABG 7.184 (7.350-7.450)
[2023-04-27 15:40] LABS: Device VENTILATOR; Site Drawn ARTLINE
[2023-04-27 15:42] LABS: Arterial Blood Gas PEEP 15 cmH2O; Arterial Blood Gas Tidal Volume 450 ml; Arterial Blood Gas Vent Mode CMV; Arterial Blood Gas Ventilator rate 28 /MIN
[2023-04-27 16:08] LABS: Glucose Point of Care 120 mg/dl (65-105)
[2023-04-27 16:22] LABS: Reflex Lactic Acid Yes or No Add Lactic
[2023-04-27] MEDS: NOREPINEPHRINE 8 MG/D5W 250 ML 8 MG/250 ML BAG 50.63 MG IV CONT (16:33)
[2023-04-27] MEDS: ALBUMIN HUMAN 25% 25 GM/100 ML 100 ML IVPB (18:30)
[2023-04-27 18:42] LABS: Hemoglobin 13.4 g/dL (14.0-18.0); Immature Platelet Fraction Pct 4.8 % (0.9-11.2); Mean Corpuscular HGB Conc 33.5 g/dl (32-36); Mean Corpuscular Hemoglobin 30.7 pg (26-34); Mean Corpuscular Volume 91.7 fl (80-100); Mean Platelet Volume 9.1 fl (7.4-10.4); Platelet Count Result 150 k/mm3 (150-375); Red Blood Count 4.36 M/mm3 (4.6-6.20); Red Cell Distribution Width 14.2 % (11.5-14.5); White Blood Count 3.4 K/mm3 (4.5-10.0)
[2023-04-27 18:53] LABS: Creatine Kinase 335 U/L (55-170)
[2023-04-27 18:54] LABS: Lactic Acid Reflex 3.9 mmol/L (0.7-2.0)
[2023-04-27 18:55] LABS: INR 1.3; Prothrombin Time 16.4 Seconds (11.1-14.7)
[2023-04-27 18:56] LABS: Partial Thromboplastin Time 40.3 Seconds (22.3-36.8)
[2023-04-27] MEDS: FENTANYL 2,500MCG/NS250ML(*CRX 2,500 MCG/250 ML BAG 20 MCG IV CONT (19:02)
[2023-04-27] MEDS: MIDAZOLAM 100MG/NS 100ML(*CRX) 100 MG/100 ML BAG 8 MG IV CONT (19:03)
[2023-04-27 19:59] LABS: Alveolar/Arterial O2 Gradient 442.5 mmHg; Base Excess ABG -2.1 mEq/l (+/-2.0); Fractional Inspired Oxygen 80 %; HCO3 ABG 23.7 mEq/l (22.0-26.0); Oxygen Content ABG 18.4 %vol (16.0-22.0); Oxygen Saturation ABG 97.2 % (95.0-100.0); Oxyhemoglobin 96.5 % THb (90.0-100.0); PCO2 ABG 44.2 mmHg (35.0-45.0); PO2 ABG 98.7 mmHg (80.0-100.0); PO2 FiO2 Ratio Arterial Blood 1.23 %; Total Hemoglobin 13.5 g/dL (12.0-18.0); pH ABG 7.347 (7.350-7.450)
[2023-04-27 20:01] LABS: Device VENTILATOR; Site Drawn ARTLINE
[2023-04-27 20:02] LABS: Arterial Blood Gas PEEP 15 cmH2O; Arterial Blood Gas Tidal Volume 450 ml; Arterial Blood Gas Vent Mode CMV; Arterial Blood Gas Ventilator rate 28 /MIN
[2023-04-27 20:04] LABS: MRSA (PCR) NOT DETECTED (NOT DETECTE)
[2023-04-27 21:50] LABS: Glucose Point of Care 139 mg/dl (65-105)
--- NOTE | 2023-04-27 23:00 | ECG_ITS ---
Measurements Intervals [place] Rate: 73 P: DE: 0 QRS: 23 QRSD: 91 T: 257 QT: 417 QTc: 461 Interpretive Statements ACCELERATED JUNCTIONAL RHYTHM ATRIAL PREMATURE COMPLEXES EARLY PRECORDIAL R/S TRANSITION LOW QRS VOLTAGE IN PRECORDIAL LEADS ST-T WAVE ABNORMALITY IN INFERIOR LEADS- CONSIDER ISCHEMIA ABNORMAL ECG COMPARED TO ECG 04/27/2023 12:05:58 NO SIGNIFICANT CHANGES Electronically Signed On 04-28-2023 7:53:33 CDT by Reggie Guo D.O.
[2023-04-27] MEDS: NOREPINEPHRINE 8 MG/D5W 250 ML 8 MG/250 ML BAG 37.5 MG IV CONT (23:15)
[2023-04-28] VITALS (73 sets, daily range): BP systolic 76–179; BP diastolic 50–76; PULSE 52–86; RESP 28; TEMP 34.9–37.2; O2SAT 92–100
[2023-04-28 00:54] LABS: Glucose Point of Care 129 mg/dl (65-105)
[2023-04-28 01:04] LABS: Anion Gap 11 mmol/L (8-16); Blood Urea Nitrogen 29 mg/dL (9-20); Calcium 7.3 mg/dL (8.4-10.2); Carbon Dioxide 24 mmol/L (22-30); Chloride 99 mmol/L (98-107); Creatine Kinase 492 U/L (55-170); Estimated CRCL calculation 52 ml/min; Estimated Glomerular Filt Rate 52; Glucose 144 mg/dL (65-110); Potassium 2.9 mmol/L (3.4-5.0); Sodium 134 mmol/L (137-145)
[2023-04-28] MEDS: ALBUMIN HUMAN 25% 25 GM/100 ML 100 ML IVPB ×4 (01:11→17:22)
[2023-04-28 01:27] LABS: Lactic Acid Reflex 5.1 mmol/L (0.7-2.0)
[2023-04-28] MEDS: KCL 40 MEQ/WATER 100 ML 100 ML 25 ML IVPB (02:16)
[2023-04-28] MEDS: PIPERACILLN/TAZ 3.375GM/NS50ML 3.375 GM/50 ML BAG IVPB ×4 (03:36→21:07)
[2023-04-28] MEDS: CENTRAL LINE FLUSH 10 ML IV PUSH ×3 (05:54→21:10)
[2023-04-28] MEDS: HYDROCORTISONE SODIUM SUCCINATE 100 MG/2 ML VIAL IV PUSH ×3 (05:54→21:07)
[2023-04-28] MEDS: LEVOTHYROXINE SODIUM INJ 100 MCG/5 ML VIAL 50 MCG IV PUSH (05:54)
[2023-04-28 06:16] LABS: Alveolar/Arterial O2 Gradient 394.9 mmHg; Carboxyhemoglobin 0.3 % THb (0-2.0); Fractional Inspired Oxygen 80 %; HCO3 ABG 25.4 mEq/l (22.0-26.0); Methemoglobin ABG 0.4 %THb (0-1.5); Oxygen Content ABG 18.6 %vol (16.0-22.0); Oxygen Saturation ABG 98.6 % (95.0-100.0); Oxyhemoglobin 97.3 % THb (90.0-100.0); PCO2 ABG 48.9 mmHg (35.0-45.0); PO2 ABG 140.3 mmHg (80.0-100.0); PO2 FiO2 Ratio Arterial Blood 1.75 %; Total Hemoglobin 13.4 g/dL (12.0-18.0); pH ABG 7.333 (7.350-7.450)
[2023-04-28 06:17] LABS: Site Drawn ARTLINE
[2023-04-28 06:18] LABS: Device VENTILATOR
[2023-04-28 06:19] LABS: Arterial Blood Gas PEEP 15 cmH2O; Arterial Blood Gas Tidal Volume 450 ml; Arterial Blood Gas Vent Mode CMV; Arterial Blood Gas Ventilator rate 28 /MIN
[2023-04-28 06:22] LABS: Glucose Point of Care 105 mg/dl (65-105)
[2023-04-28] MEDS: NOREPINEPHRINE 8 MG/D5W 250 ML 8 MG/250 ML BAG 37.5 MG IV CONT (06:25)
[2023-04-28 06:30] LABS: Hemoglobin 12.6 g/dL (14.0-18.0); Immature Platelet Fraction Pct 5.2 % (0.9-11.2); Mean Corpuscular HGB Conc 34.1 g/dl (32-36); Mean Corpuscular Hemoglobin 31.3 pg (26-34); Mean Corpuscular Volume 91.8 fl (80-100); Mean Platelet Volume 9.4 fl (7.4-10.4); Platelet Count Result 120 k/mm3 (150-375); Red Blood Count 4.03 M/mm3 (4.6-6.20); Red Cell Distribution Width 14.4 % (11.5-14.5); White Blood Count 6.6 K/mm3 (4.5-10.0)
[2023-04-28 06:34] LABS: INR 1.5; Prothrombin Time 18.7 Seconds (11.1-14.7)
[2023-04-28 06:35] LABS: Partial Thromboplastin Time 47.6 Seconds (22.3-36.8)
[2023-04-28 06:40] LABS: Alanine Aminotransferase 47 U/L (6-50); Albumin Level 3.4 g/dL (3.5-5.1); Alkaline Phosphatase 65 U/L (38-126); Anion Gap 11 mmol/L (8-16); Aspartate Amino Transferase 108 U/L (17-59); Bilirubin,Total 1.2 mg/dL (0.2-1.3); Blood Urea Nitrogen 28 mg/dL (9-20); Calcium 7.3 mg/dL (8.4-10.2); Carbon Dioxide 26 mmol/L (22-30); Chloride 98 mmol/L (98-107); Creatine Kinase 1345 U/L (55-170); Estimated CRCL calculation 52 ml/min; Estimated Glomerular Filt Rate 52; Glucose 131 mg/dL (65-110); Phosphorus 4.1 mg/dL (2.5-4.5); Potassium 3.4 mmol/L (3.4-5.0); Sodium 135 mmol/L (137-145)
[2023-04-28 06:43] LABS: Lactic Acid Reflex 4.9 mmol/L (0.7-2.0)
[2023-04-28 07:35] LABS: Anisocytosis 1+; Band Neutrophils Percent 34 % (0-6); Eosinophils Absolute Manual 0.13 K/mm3 (0.02-0.50); Eosinophils Percent Manual 2 % (0-4); Lymphocytes Absolute Manual 0.06 K/mm3 (1.1-4.5); Metamyelocytes Percent 2 %; Monocytes Absolute Manual 0.59 K/mm3 (0.1-0.90); Monocytes Percent Manual 9 % (3-9); Neutrophils Absolute Manual 5.67 K/mm3 (1.3-6.7); Neutrophils Percent Manual 52 % (46-73); Platelet Estimate Slightly Decreased (Adequate); Schistocytes None Seen; Total Cells Counted 100; Toxic Granulation Present
--- NOTE | 2023-04-28 07:50 | PM.PNCARD ---
Progress Note: A&P Assessment and Plan (1) Cardiac arrest: Code(s): I46.9 - Cardiac arrest, cause unspecified Status: Acute Plan 62-year-old man with ventricular tachycardia arrest occurring yesterday and transferred here for further care and management. His cardiac rhythm appears to primarily be a junctional rhythm with occasional APCs. This was the rhythm yesterday he also has some episodes of sinus rhythm as well. None the less he is not bradycardic any is perfusing well so the rhythm is acceptable. Aggressive supportive care will be continued. The principal issue of course at this time is determining degree of neurological recovery. On 1 hand this was a witnessed arrest on the other hand it apparently took a good deal of time to successfully intubate him. No specific cardiac recommendations at this time. Will continue to follow with you and subsequent workup will be determined by neurological recovery James Forbes MD [facility] Subjective Date/time seen: Date of service: 04/28/23 07:50 Interval history: Follow-up visit in this 62-year-old patient with: Ventricular tachycardia arrest which occurred in a witnessed fashion and prompt resuscitation was undertaken. According to the records the resuscitation ever took some time and it was also difficult to intubate this patient. He was then subsequently transferred here for further evaluation and management. He has no prior known history of significant heart disease. Patient is intubated on mechanical ventilator support and aggressive supportive care is now being provided Exam Const: Other: Intubated sedated white male a prone position HENMT: Mouth: Yes moist mucous membranes Eyes: Sclera: sclerae normal Neck: Neck: supple Resp: Other: Breath sounds with some coarse central rhonchi Cardio: Rate: regular rate Rhythm: regular rhythm GI: GI Palp: Yes Soft to palpation Skin: General skin exam: normal color Neuro: Other: Unresponsive on ventilator Extrem: Other: No edema, extremities are cool Objective Data Vital Signs Vital Signs: Vital Signs - 24 hr 04/27/23 07:51 04/27/23 07:56 04/27/23 08:00 Temperature Pulse Rate 50 L 58 L 57 L Respiratory Rate 26 H 26 H Blood Pressure Pulse Oximetry Oxygen Delivery Mechanical Ventilation Fraction of Inspired Oxygen 100 04/27/23 09:01 04/27/23 07:52 04/27/23 08:00 Temperature 35.5 C L Pulse Rate 64 59 L 57 L Respiratory Rate 27 H 26 H Blood Pressure 109/57 L Pulse Oximetry 75 L Oxygen Delivery Fraction of Inspired Oxygen 04/27/23 10:25 04/27/23 11:38 04/27/23 08:00 Temperature 35.5 C L Pulse Rate 56 L 60 57 L Respiratory Rate 28 H 26 H Blood Pressure 102/66 109/57 L Pulse Oximetry 82 L Oxygen Delivery Mechanical Ventilation Fraction of Inspired Oxygen 100 04/27/23 08:00 04/27/23 08:00 04/27/23 10:00 Temperature Pulse Rate 58 L 65 Respiratory Rate Blood Pressure Pulse Oximetry Oxygen Delivery Mechanical Ventilation Fraction of Inspired Oxygen 100 04/27/23 12:00 04/27/23 11:00 04/27/23 09:00 Temperature 35.4 C L 35.4 C L Pulse Rate 69 56 L 65 Respiratory Rate 23 H 25 H Blood Pressure 94/65 L 97/61 L Pulse Oximetry 82 L Oxygen Delivery Fraction of Inspired Oxygen 04/27/23 10:00 04/27/23 12:00 04/27/23 12:00 Temperature 35.4 C L 35.6 C L 35.6 C L Pulse Rate 65 70 70 Respiratory Rate 25 H 28 H 28 H Blood Pressure 92/62 L 90/66 L 90/66 L Pulse Oximetry Oxygen Delivery Fraction of Inspired Oxygen 04/27/23 07:55 04/27/23 10:00 04/27/23 11:45 Temperature Pulse Rate 55 L 65 62 Respiratory Rate Blood Pressure 102/68 92/62 L Pulse Oximetry Oxygen Delivery Fraction of Inspired Oxygen 04/27/23 11:46 04/27/23 10:00 04/27/23 12:00 Temperature Pulse Rate 62 65 70 Respiratory Rate 25 H 28 H Blood Pressure 93/66 L Pulse Oximet
[2023-04-28 08:02] LABS: Glucose Point of Care 110 mg/dl (65-105)
--- NOTE | 2023-04-28 08:07 | ECG_ITS ---
Measurements Intervals [place] Rate: 65 P: DC: 0 QRS: 72 QRSD: 112 T: -72 QT: 523 QTc: 547 Interpretive Statements ACCELERATED JUNCTIONAL RHYTHM INTRAVENTRICULAR CONDUCTION DELAY DELAYED PRECORDIAL R/S TRANSITION ST-T WAVE ABNORMALITY IN INF/LAT LEADS- CONSIDER ISCHEMIA BASELINE ARTIFACT- V1 ABNORMAL ECG COMPARED TO ECG 04/27/2023 23:24:07 INTRAVENTRICULAR CONDUCTION DELAY NOW PRESENT Electronically Signed On 04-28-2023 17:45:44 CDT by Reggie Guo D.O.
[2023-04-28] MEDS: IPRATROPIUM 0.5 MG/ALBUTEROL SULFATE 2.5 MG AMPUL.NEB 3 ML INHALATION ×3 (08:09→20:36)
[2023-04-28] MEDS: CALCIUM GLUC 2,000 MG/NS 100ML 2,000 MG/100 ML BAG 100 MG IVPB (09:11)
[2023-04-28] MEDS: POTASSIUM CHLORIDE 20 MEQ PACKET (FOR LIQUID) FEED TUBE (09:12)
[2023-04-28] MEDS: PANTOPRAZOLE SODIUM IV 40 MG VIAL IV PUSH ×2 (09:13→21:07)
[2023-04-28] MEDS: MINERAL OIL/WHITE PETROLATUM OINTMENT 1 APPLIC EACH EYE ×2 (09:13→21:10)
[2023-04-28] MEDS: ALBUMIN HUMAN 5% 25 GM/500 ML BTL IV CONT (09:18)
[2023-04-28 09:19] LABS: Reflex Lactic Acid Yes or No Add Lactic
[2023-04-28 09:23] LABS: Glucose Point of Care 81 mg/dl (65-105)
[2023-04-28] MEDS: MIDAZOLAM 100MG/NS 100ML(*CRX) 100 MG/100 ML BAG 6 MG IV CONT (09:23)
[2023-04-28 10:08] LABS: Lactic Acid 4.3 mmol/L (0.7-2.0)
--- NOTE | 2023-04-28 10:10 | WPDINTPN ---
Progress Note: A&P Assessment and Plan (1) Cardiac arrest: Code(s): I46.9 - Cardiac arrest, cause unspecified Status: Acute Assessment and Plan: It appears the patient presented at an EMS facility and collapsed. Received CPR and epinephrine. No documentation available and unknown down time. When arrived in the ER he was being bag ventilated V-tach with pulse. Difficult and prolonged intubation and required multiple times. Received amiodarone push which led to sinus bradycardia which was treated with atropine. Since then patient has been in sinus rhythm with intermittent junctional bradycardia. He has had runs of V-tach in the ER and in the ICU. Differential diagnosis is broad. CTA negative for PE Serial troponins consistent with non STEMI and echocardiogram does not show any significant abnormality Aspirin and anticoagulation were held due to GI bleed Beta-gail held due to shock Amiodarone infusion was initiated but stopped due to worsening bradycardia and junctional bradycardia Cardiology following Echo as below Treatment of sepsis and pneumonia as below Urine drug screen positive for cocaine. Patient also has heavy alcohol use history Treatment of respiratory failure and hypoxia as below TTM protocol for anoxic brain injury underway Treatment of acidosis as below Monitor and treat electrolyte abnormalities 04/27 EKG shows junctional rhythm with nonspecific ST T-wave changes Echo 04/26 Summary ? 1. Technically somewhat challenging exam with patient on ventilator, definity contrast injected. ? 2. Normal appearing will left ventricular size and systolic contractility with normal ejection fraction. ? 3. Mildly sclerotic aortic valve otherwise no significant valvular dysfunction. ? 4. No pericardial. (2) Acute respiratory failure: Code(s): J96.00 - Acute respiratory failure, unspecified whether with hypoxia or hypercapnia Status: Acute Assessment and Plan: Acute respiratory failure secondary to cardiac arrest aspiration pneumonia CT scan was negative for PE Ventilator settings reviewed and will increase rate to 28 and tidal volume is at 450 and peep at 15 Patient was significantly hypoxic and is currently on 100% FiO2. He was started on Nimbex infusion and placed in prone position 04/27 FiO2 weaned to 80% peep is still at 15 patient will be supine this morning and to prone him back this after unless shows more improvement. Continue to wean FiO2. Continue Bronchodilators Antibiotics as below (3) Sepsis: Code(s): A41.9 - Sepsis, unspecified organism Status: Acute Assessment and Plan: Sepsis secondary to aspiration pneumonia UA negative for UTI Procalcitonin 16.8 Blood cultures have been ordered and sent Empiric Zosyn (4) V tach: Code(s): I47.20 - Ventricular tachycardia, unspecified Status: Inactive Assessment and Plan: See above (5) Aspiration pneumonia: Code(s): J69.0 - Pneumonitis due to inhalation of food and vomit Status: Acute Assessment and Plan: Patient vomited on presentation now has bilateral consolidation suggestive of pneumonia which is likely aspiration Treatment as above (6) Shock: Code(s): R57.9 - Shock, unspecified Status: Acute Assessment and Plan: Patient likely has a multifactorial shock secondary to sepsis and cardiogenic Patient had received more than 3.5 L of fluid prior to coming to the ICU. Intake and output in our [facility] are not fully accurate. He does have worsening infiltrate and hypoxia Will limit further fluid and discontinue IV fluids at this time Vasopressin weaned off Continue Levophed Continue stress dose hydrocortisone acidosis improved with treatment 04/26 Due to worsening shock and bradycardia patient's goal temperature was changed from 33-36 degrees C for therapeutic hypothermia. Amiodarone has also been discontinued due to bradycardia and worsening shock A left radial
--- NOTE | 2023-04-28 11:07 | WPDPROCEDUR ---
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 On 1st attempt I was able to cannulate the artery but unable to advance guidewire and guidewire appeared to be stuck hence both needle and guidewire were removed. Art line inserted on 2nd attempt without any complication. Will remove radial art line
[2023-04-28] MEDS: FENTANYL 2,500MCG/NS250ML(*CRX 2,500 MCG/250 ML BAG 15 MCG IV CONT (11:24)
[2023-04-28] MEDS: DEXTROSE 50% 25 GM/50 ML SYRINGE IV PUSH ×2 (11:28→15:23)
[2023-04-28] MEDS: PHYTONADIONE INJ 10 MG/ML AMP IM (11:37)
[2023-04-28 11:40] LABS: Fibrinogen 399 mg/dl (215-510)
[2023-04-28 11:41] LABS: Glucose Point of Care 43 mg/dl (65-105)
[2023-04-28 11:44] LABS: Glucose Point of Care 175 mg/dl (65-105)
[2023-04-28] MEDS: DEXTROSE 5%/LACTATED RINGERS 1,000 ML 50 ML IV CONT (12:44)
[2023-04-28] MEDS: NOREPINEPHRINE 8 MG/D5W 250 ML 8 MG/250 ML BAG 28.13 MG IV CONT (14:45)
--- NOTE | 2023-04-28 15:11 | P.PNIM_ITS ---
Progress Note: A&P Assessment and Plan (1) Cardiac arrest: Code(s): I46.9 - Cardiac arrest, cause unspecified Status: Acute Assessment and Plan: It appears the patient presented at an EMS facility and collapsed. Received CPR and epinephrine. When arrived in the ER he was being bag ventilated V-tach with pulse. Difficult and prolonged intubation and required multiple times. Received amiodarone push which led to sinus bradycardia which was treated with atropine. Since then patient has been in sinus rhythm with intermittent junctional bradycardia. Runs of V-tach in the ER and in the ICU. Differential diagnosis is broad. CTA negative for PE Serial troponins consistent with non STEMI and echocardiogram does not show any significant abnormality Aspirin and anticoagulation were held due to GI bleed Beta-gail held due to shock Amiodarone infusion was initiated but stopped due to worsening bradycardia and junctional bradycardia Cardiology following Echo as below Treatment of sepsis and pneumonia as below Urine drug screen positive for cocaine. Patient also has heavy alcohol use history Treatment of respiratory failure and hypoxia as below TTM protocol for anoxic brain injury underway Treatment of acidosis as below Monitor and treat electrolyte abnormalities 04/27 EKG shows junctional rhythm with nonspecific ST T-wave changes Echo 04/26 Summary ? 1. Technically somewhat challenging exam with patient on ventilator, definity contrast injected. ? 2. Normal appearing will left ventricular size and systolic contractility with normal ejection fraction. ? 3. Mildly sclerotic aortic valve otherwise no significant valvular dysfunction. ? 4. No pericardial. (2) Acute respiratory failure: Code(s): J96.00 - Acute respiratory failure, unspecified whether with hypoxia or hypercapnia Status: Acute Assessment and Plan: Acute respiratory failure secondary to cardiac arrest aspiration pneumonia CT scan was negative for PE Ventilator settings reviewed and will increase rate to 28 and tidal volume is at 450 and peep at 15 Patient was significantly hypoxic and is currently on 100% FiO2. He was started on Nimbex infusion and placed in prone position 04/27 FiO2 weaned to 80% peep is still at 15 patient will be supine this morning and to prone him back this after unless shows more improvement. Continue to wean FiO2. Continue Bronchodilators Antibiotics as below (3) Sepsis: Code(s): A41.9 - Sepsis, unspecified organism Status: Acute Assessment and Plan: Sepsis secondary to aspiration pneumonia UA negative for UTI Procalcitonin 16.8 Blood cultures have been ordered and sent Empiric Zosyn (4) V tach: Code(s): I47.20 - Ventricular tachycardia, unspecified Status: Inactive Assessment and Plan: See above (5) Aspiration pneumonia: Code(s): J69.0 - Pneumonitis due to inhalation of food and vomit Status: Acute Assessment and Plan: Patient vomited on presentation now has bilateral consolidation suggestive of pneumonia which is likely aspiration Treatment as above (6) Shock: Code(s): R57.9 - Shock, unspecified Status: Acute Assessment and Plan: Patient likely has a multifactorial shock secondary to sepsis and cardiogenic Patient had received more than 3.5 L of fluid prior to coming to the ICU. Intake and output in our [facility] are not fully accurate. He does have worsening infiltrate and hypoxia Will limit further fluid and discontinue IV fluids at this time Vasopressin weaned off
[2023-04-28 15:28] LABS: Glucose Point of Care 33 mg/dl (65-105)
[2023-04-28 15:41] LABS: Glucose Point of Care 120 mg/dl (65-105)
[2023-04-28 16:29] LABS: Anion Gap 8 mmol/L (8-16); Blood Urea Nitrogen 26 mg/dL (9-20); Calcium 7.5 mg/dL (8.4-10.2); Carbon Dioxide 31 mmol/L (22-30); Chloride 97 mmol/L (98-107); Estimated CRCL calculation 52 ml/min; Estimated Glomerular Filt Rate 52; Glucose 207 mg/dL (65-110); Magnesium 1.8 mg/dL (1.6-2.3); Phosphorus 3.1 mg/dL (2.5-4.5); Potassium 3.2 mmol/L (3.4-5.0); Sodium 136 mmol/L (137-145)
[2023-04-28 16:39] LABS: Creatine Kinase 2674 U/L (55-170)
[2023-04-28] MEDS: CISATRACURIUM BESYLATE 200 MG in DEXTROSE 5% 80 ML IV CONT (17:57)
[2023-04-28 19:24] LABS: Glucose Point of Care 80 mg/dl (65-105)
[2023-04-28 20:03] LABS: Lactic Acid Reflex 3.2 mmol/L (0.7-2.0)
[2023-04-28 20:19] LABS: Creatine Kinase 3374 U/L (55-170)
[2023-04-28 21:52] LABS: Glucose Point of Care 75 mg/dl (65-105)
[2023-04-28] MEDS: POTASSIUM CHLORIDE 20 MEQ PACKET (FOR LIQUID) 40 MEQ PO (22:46)
[2023-04-28] MEDS: KCL 20 MEQ/SW 100 ML 100 ML 50 MEQ IVPB (22:46)
[2023-04-28 22:50] LABS: Reflex Lactic Acid Yes or No Add Lactic
[2023-04-29] VITALS (66 sets, daily range): BP systolic 71–138; BP diastolic 49–72; PULSE 66–93; RESP 18–28; TEMP 36.6–38.4; O2SAT 91–97
[2023-04-29] MEDS: DEXTROSE 50% 25 GM/50 ML SYRINGE IV PUSH ×4 (00:43→03:48)
[2023-04-29] MEDS: GLUCAGON FOR INJ 1 MG VIAL IM (00:56)
[2023-04-29] MEDS: ALBUMIN HUMAN 25% 25 GM/100 ML 100 ML IVPB ×2 (00:57→06:22)
[2023-04-29 01:46] LABS: Glucose Point of Care < 20 mg/dl (65-105)
[2023-04-29 01:46] LABS: Glucose Point of Care 118 mg/dl (65-105)
[2023-04-29 01:46] LABS: Glucose Point of Care 135 mg/dl (65-105)
[2023-04-29 01:46] LABS: Glucose Point of Care 55 mg/dl (65-105)
[2023-04-29 01:46] LABS: Glucose Point of Care 20 mg/dl (65-105)
[2023-04-29] MEDS: PIPERACILLN/TAZ 3.375GM/NS50ML 3.375 GM/50 ML BAG IVPB ×4 (02:51→20:59)
[2023-04-29] MEDS: IPRATROPIUM 0.5 MG/ALBUTEROL SULFATE 2.5 MG AMPUL.NEB 3 ML INHALATION ×4 (02:54→20:07)
[2023-04-29] MEDS: MIDAZOLAM 100MG/NS 100ML(*CRX) 100 MG/100 ML BAG 6 MG IV CONT (02:56)
[2023-04-29] MEDS: CISATRACURIUM BESYLATE 200 MG in DEXTROSE 5% 80 ML IV CONT (02:57)
[2023-04-29 03:53] LABS: Glucose Point of Care 54 mg/dl (65-105)
[2023-04-29 03:53] LABS: Glucose Point of Care 72 mg/dl (65-105)
[2023-04-29 04:23] LABS: Glucose Point of Care 153 mg/dl (65-105)
[2023-04-29 04:23] LABS: Glucose Point of Care 299 mg/dl (65-105)
[2023-04-29 04:30] LABS: Base Excess ABG -1.3 mEq/l (+/-2.0); Fractional Inspired Oxygen 60 %; HCO3 ABG 27.1 mEq/l (22.0-26.0); Oxygen Saturation ABG 96.9 % (95.0-100.0); PO2 FiO2 Ratio Arterial Blood 1.73 %
[2023-04-29 04:32] LABS: Hematocrit 31.8 % (42.0-52.0); Hemoglobin 10.6 g/dL (14.0-18.0); Immature Platelet Fraction Pct 6.6 % (0.9-11.2); Mean Corpuscular HGB Conc 33.3 g/dl (32-36); Mean Platelet Volume 10.3 fl (7.4-10.4); Platelet Count Result 76 k/mm3 (150-375); Red Blood Count 3.42 M/mm3 (4.6-6.20); Red Cell Distribution Width 14.7 % (11.5-14.5); White Blood Count 8.8 K/mm3 (4.5-10.0); pH ABG 7.262 (7.350-7.450)
[2023-04-29 04:33] LABS: PCO2 ABG 61.6 mmHg (35.0-45.0)
[2023-04-29] MEDS: FENTANYL 2,500MCG/NS250ML(*CRX 2,500 MCG/250 ML BAG 15 MCG IV CONT (04:34)
[2023-04-29 04:35] LABS: Device VENTILATOR; Site Drawn ARTLINE
[2023-04-29 04:36] LABS: Arterial Blood Gas PEEP 12 cmH2O; Arterial Blood Gas Vent Mode CMV; Arterial Blood Gas Ventilator rate 28 /MIN
[2023-04-29 04:37] LABS: Arterial Blood Gas Tidal Volume 450 ml
[2023-04-29 04:44] LABS: Alanine Aminotransferase 45 U/L (6-50); Albumin Level 3.7 g/dL (3.5-5.1); Alkaline Phosphatase 35 U/L (38-126); Anion Gap 7 mmol/L (8-16); Aspartate Amino Transferase 115 U/L (17-59); Bilirubin,Total 1.5 mg/dL (0.2-1.3); Blood Urea Nitrogen 22 mg/dL (9-20); Calcium 7.2 mg/dL (8.4-10.2); Carbon Dioxide 30 mmol/L (22-30); Chloride 99 mmol/L (98-107); Estimated CRCL calculation 65 ml/min; Estimated Glomerular Filt Rate > 60; Glucose 251 mg/dL (65-110); Magnesium 1.9 mg/dL (1.6-2.3); Phosphorus 2.5 mg/dL (2.5-4.5); Potassium 3.2 mmol/L (3.4-5.0); Sodium 136 mmol/L (137-145)
[2023-04-29 04:46] LABS: Lactic Acid Reflex 3.9 mmol/L (0.7-2.0)
[2023-04-29 04:48] LABS: Lymphocytes Absolute Manual 0.17 K/mm3 (1.1-4.5); Lymphocytes Percent Manual 2 % (18-44); Monocytes Absolute Manual 0.08 K/mm3 (0.1-0.90); Monocytes Percent Manual 1 % (3-9); Neutrophils Percent Manual 72 % (46-73); Total Cells Counted 100
[2023-04-29 04:49] LABS: Anisocytosis 1+; Band Neutrophils Percent 23 % (0-6); Eosinophils Absolute Manual 0.08 K/mm3 (0.02-0.50); Eosinophils Percent Manual 1 % (0-4); Hypochromasia 1+; Metamyelocytes Percent 1 %; Neutrophils Absolute Manual 8.36 K/mm3 (1.3-6.7); Platelet Estimate Decreased (Adequate); Poikilocytosis 1+
[2023-04-29 04:50] LABS: Ovalocytes 1+; Schistocytes None Seen
[2023-04-29 05:08] LABS: Creatine Kinase 4097 U/L (55-170)
[2023-04-29] MEDS: HYDROCORTISONE SODIUM SUCCINATE 100 MG/2 ML VIAL IV PUSH ×3 (06:22→22:31)
[2023-04-29] MEDS: DEXTROSE 5%/LACTATED RINGERS 1,000 ML 125 ML IV CONT (06:22)
[2023-04-29] MEDS: LEVOTHYROXINE SODIUM INJ 100 MCG/5 ML VIAL 50 MCG IV PUSH (06:23)
[2023-04-29] MEDS: CENTRAL LINE FLUSH 10 ML IV PUSH ×3 (06:23→22:28)
[2023-04-29 06:38] LABS: Alveolar/Arterial O2 Gradient 259.2 mmHg; Base Excess ABG -1.6 mEq/l (+/-2.0); Carboxyhemoglobin 0.3 % THb (0-2.0); Fractional Inspired Oxygen 60 %; HCO3 ABG 26.1 mEq/l (22.0-26.0); Methemoglobin ABG 0.4 %THb (0-1.5); Oxygen Content ABG 16.3 %vol (16.0-22.0); PO2 ABG 104.8 mmHg (80.0-100.0); PO2 FiO2 Ratio Arterial Blood 1.75 %; Reduced Hemoglobin 3.3 %THb (0-5.0)
[2023-04-29 06:40] LABS: Device VENTILATOR; Site Drawn ARTLINE; pH ABG 7.271 (7.350-7.450)
[2023-04-29 06:41] LABS: Arterial Blood Gas PEEP 12 cmH2O; Arterial Blood Gas Tidal Volume 450 ml; Arterial Blood Gas Vent Mode CMV; Arterial Blood Gas Ventilator rate 28 /MIN
--- NOTE | 2023-04-29 07:00 | ECG_ITS ---
Measurements Intervals [place] Rate: 80 P: [place]: 0 QRS: 78 QRSD: 137 T: 0 QT: 362 QTc: 420 Interpretive Statements ACCELERATED JUNCTIONAL RHYTHM INTRAVENTRICULAR CONDUCTION DELAY CANNOT RULE OUT SEPTAL INFARCT, AGE INDETERMINATE BORDERLINE ST-T WAVE ABNORMALITY- INFERIOR LEADS ABNORMAL ECG COMPARED TO ECG 04/28/2023 10:00:50 NO SIGNIFICANT CHANGES Electronically Signed On 04-29-2023 13:32:02 CDT by Reggie Guo D.O.
--- NOTE | 2023-04-29 08:01 | PC.NURSE ---
Patient hypoglycemic today per dayshift RN. Dr. Abbott notified of 214 glucose of 75 while on D5LR@50 ml/hr. Order received to initiate tube feedings. 0036 cap glucose of <20 0037 repeat cap glucose of 20 on opposite extremity Patient given 1 amp of D50 per protocol 0047 repeat cap glucose 55 Dr. Herman notified and advised to give 1 amp D50 in addition to glucagon; both were given by this RN. 0102 repeat cap glucose 135 0138 repeat cap glucose 118 Dr. Abbott notified of all previous events and order give to increase D5LR to 125 ml/hr, 0247 repeat cap glucose 72 tube feeds increased to 40 ml/hr 0346 repeat cap glucose 54. [address] Abbott notified for further orders. Advised to check glucose from line. All further cap glucose were found to be significantly lower than those from art line draw. Accucheck pulled from art line correlated with a.m. lab work. Patient blood glucose now stable and on Q2 accuchecks as ordered.
[2023-04-29] MEDS: CALCIUM GLUC 2,000 MG/NS 100ML 2,000 MG/100 ML BAG 100 MG IVPB (08:20)
[2023-04-29 08:22] LABS: Glucose Point of Care 185 mg/dl (65-105)
[2023-04-29 08:22] LABS: Glucose Point of Care 137 mg/dl (65-105)
[2023-04-29] MEDS: PANTOPRAZOLE SODIUM IV 40 MG VIAL IV PUSH ×2 (08:31→22:28)
[2023-04-29] MEDS: KCL 40 MEQ/WATER 100 ML 100 ML 25 ML IVPB (08:31)
[2023-04-29] MEDS: POTASSIUM CHLORIDE 20 MEQ PACKET (FOR LIQUID) 40 MEQ FEED TUBE (08:32)
[2023-04-29] MEDS: MINERAL OIL/WHITE PETROLATUM OINTMENT 1 APPLIC EACH EYE ×2 (08:52→22:32)
--- NOTE | 2023-04-29 09:01 | WPDINTPN ---
Progress Note: A&P Assessment and Plan (1) Cardiac arrest: Code(s): I46.9 - Cardiac arrest, cause unspecified Status: Acute Assessment and Plan: It appears the patient presented at an EMS facility and collapsed. Received CPR and epinephrine. No documentation available and unknown down time. When arrived in the ER he was being bag ventilated V-tach with pulse. Difficult and prolonged intubation and required multiple times. Received amiodarone push which led to sinus bradycardia which was treated with atropine. Since then patient has been in sinus rhythm with intermittent junctional bradycardia. He has had runs of V-tach in the ER and in the ICU. Differential diagnosis is broad. CTA negative for PE Serial troponins consistent with non STEMI and echocardiogram does not show any significant abnormality Aspirin and anticoagulation were held due to GI bleed Beta-gail held due to shock Amiodarone infusion was initiated but stopped due to worsening bradycardia and junctional bradycardia Cardiology following Echo as below Treatment of sepsis and pneumonia as below Urine drug screen positive for cocaine. Patient also has heavy alcohol use history Treatment of respiratory failure and hypoxia as below TTM protocol for anoxic brain injury underway Treatment of acidosis as below Monitor and treat electrolyte abnormalities 04/27 EKG shows junctional rhythm with nonspecific ST T-wave changes Echo 04/26 Summary ? 1. Technically somewhat challenging exam with patient on ventilator, definity contrast injected. ? 2. Normal appearing will left ventricular size and systolic contractility with normal ejection fraction. ? 3. Mildly sclerotic aortic valve otherwise no significant valvular dysfunction. ? 4. No pericardial. (2) Acute respiratory failure: Code(s): J96.00 - Acute respiratory failure, unspecified whether with hypoxia or hypercapnia Status: Acute Assessment and Plan: Acute respiratory failure secondary to cardiac arrest aspiration pneumonia CT scan was negative for PE Ventilator settings reviewed and will increase rate to 28 and tidal volume is at 450 and peep at 15 Patient was significantly hypoxic and is currently on 100% FiO2. He was started on Nimbex infusion and placed in prone position 04/27 FiO2 weaned to 80% peep is still at 15 patient will be supine this morning and to prone him back this after unless shows more improvement. Continue to wean FiO2. Continue Bronchodilators Antibiotics as below 04/28 PEEP is down to 12 and FiO2 is at 60%. Will reposition patient in supine position this morning and see how he tolerated. Depending on how he tolerates supine position will make decision on whether to the prone patient today (3) Sepsis: Code(s): A41.9 - Sepsis, unspecified organism Status: Acute Assessment and Plan: Sepsis secondary to aspiration pneumonia UA negative for UTI Procalcitonin 16.8 Blood cultures have been negative till now Continue empiric Zosyn (4) V tach: Code(s): I47.20 - Ventricular tachycardia, unspecified Status: Inactive Assessment and Plan: See above (5) Aspiration pneumonia: Code(s): J69.0 - Pneumonitis due to inhalation of food and vomit Status: Acute Assessment and Plan: Patient vomited on presentation now has bilateral consolidation suggestive of pneumonia which is likely aspiration Treatment as above (6) Shock: Code(s): R57.9 - Shock, unspecified Status: Acute Assessment and Plan: Patient likely has a multifactorial shock secondary to sepsis and cardiogenic Patient had received more than 3.5 L of fluid prior to coming to the ICU. Intake and output in our [facility] are not fully accurate. He does have worsening infiltrate and hypoxia Fluids were discontinued earlier but had to be restarted due to hypoglycemia and will try to wean down Vasopressin weaned off Continue Levophed Continue stress dose
--- NOTE | 2023-04-29 09:05 | PM.PNCARD ---
Progress Note: A&P Assessment and Plan (1) Cardiac arrest: Code(s): I46.9 - Cardiac arrest, cause unspecified Status: Acute Plan 62-year-old man status post [id number] VT arrest, resuscitation and subsequent admission to the ICU. He is hemodynamically stable, curiously appears to be in a persistent junctional rhythm although heart rate is in the 70s and 80s today. This rhythm is hemodynamically stable however he is well perfused. Continue aggressive supportive care and subsequent cardiovascular workup (cath) to be decided upon after neurological status becomes clear Jmaes Forbes MD [facility] Subjective Date/time seen: Date of service: 04/29/23 09:05 Interval history: Follow-up visit in this 62-year-old patient with: Ventricular tachycardia arrest which occurred in a witnessed fashion and prompt resuscitation was undertaken. According to the records the resuscitation ever took some time and it was also difficult to intubate this patient. He was then subsequently transferred here for further evaluation and management. He has no prior known history of significant heart disease. Patient is intubated on mechanical ventilator support and aggressive supportive care is now being provided Date of service 04/29/2023: Patient is improved hemodynamically with reduction in pressor support. Still on full mechanical ventilatory support and sedated. Exam Const: Other: Intubated sedated white male a prone position HENMT: Mouth: Yes moist mucous membranes Eyes: Sclera: sclerae normal Neck: Neck: supple and no JVD Other: Carotid pulses are intact bilaterally Resp: Other: Breath sounds with some coarse central rhonchi Cardio: Rate: regular rate Rhythm: regular rhythm Other: No audible murmur or gallop Urinary Catheter: Urinary Catheter: patent and draining Skin: General skin exam: normal color Neuro: Other: Unresponsive on ventilator Extrem: Other: No edema, extremities are cool Objective Data Vital Signs Vital Signs: Vital Signs - 24 hr 04/28/23 09:23 04/28/23 09:23 04/28/23 10:00 Temperature Pulse Rate 67 67 65 Respiratory Rate 28 H 28 H 28 H Blood Pressure Pulse Oximetry Oxygen Delivery Fraction of Inspired Oxygen 04/28/23 10:00 04/28/23 10:00 04/28/23 10:00 Temperature Pulse Rate 66 66 68 Respiratory Rate 28 H Blood Pressure 120/58 L 122/57 L Pulse Oximetry Oxygen Delivery Fraction of Inspired Oxygen 04/28/23 11:24 04/28/23 11:24 04/28/23 11:38 Temperature Pulse Rate 67 67 69 Respiratory Rate 28 H 28 H Blood Pressure 121/51 L Pulse Oximetry Oxygen Delivery Fraction of Inspired Oxygen 04/28/23 11:19 04/28/23 12:00 04/28/23 12:00 Temperature 35.8 C L Pulse Rate 68 69 69 Respiratory Rate 28 H Blood Pressure 110/68 Pulse Oximetry 96 94 Oxygen Delivery Mechanical Ventilation Fraction of Inspired Oxygen 70 04/28/23 12:00 04/28/23 14:22 04/28/23 14:22 Temperature Pulse Rate 82 82 Respiratory Rate 28 H Blood Pressure Pulse Oximetry 93 Oxygen Delivery Mechanical Ventilation Mechanical Ventilation Fraction of Inspired Oxygen 70 60 04/28/23 14:41 04/28/23 14:42 04/28/23 14:45 Temperature Pulse Rate 82 86 85 Respiratory Rate 28 H Blood Pressure 112/65 112/65 Pulse Oximetry Oxygen Delivery Fraction of Inspired Oxygen 04/28/23 14:52 04/28/23 15:16 04/28/23 15:43 Temperature Pulse Rate 85 78 74 Respiratory Rate Blood Pressure 127/57 L 140/60 144/56 H Pulse Oximetry Oxygen Delivery Fraction of Inspired Oxygen 04/28/23 14:00 04/28/23 16:00 04/28/23 16:00 Temperature Pulse Rate 78 74 Respiratory Rate Blood Pressure Pulse Oximetry Oxygen Delivery Mechanical Ventilation Fraction of Inspired Oxygen 60 04/28/23 16:52 04/28/23 16:00 04/28/23 17:21 Temperature Pulse Rate 77 73 7
[2023-04-29 10:14] LABS: Glucose Point of Care 125 mg/dl (65-105)
[2023-04-29 12:32] LABS: Glucose Point of Care 74 mg/dl (65-105)
[2023-04-29 12:43] LABS: Alveolar/Arterial O2 Gradient 401.8 mmHg; Base Excess ABG 2.2 mEq/l (+/-2.0); Carboxyhemoglobin 0.3 % THb (0-2.0); Fractional Inspired Oxygen 75 %; HCO3 ABG 29.7 mEq/l (22.0-26.0); Methemoglobin ABG 0.3 %THb (0-1.5); Oxygen Saturation ABG 91.2 % (95.0-100.0); Oxyhemoglobin 91.6 % THb (90.0-100.0); PO2 ABG 67.7 mmHg (80.0-100.0); Reduced Hemoglobin 7.8 %THb (0-5.0); Total Hemoglobin 11.6 g/dL (12.0-18.0); pH ABG 7.303 (7.350-7.450)
[2023-04-29 12:45] LABS: PCO2 ABG 61.4 mmHg (35.0-45.0); Site Drawn ARTLINE
[2023-04-29 12:45] LABS: Calcium 7.8 mg/dL (8.4-10.2); Magnesium 1.9 mg/dL (1.6-2.3); Phosphorus 2.6 mg/dL (2.5-4.5)
[2023-04-29 12:46] LABS: Arterial Blood Gas Ventilator rate 28 /MIN; Device VENTILATOR
[2023-04-29 12:47] LABS: Arterial Blood Gas PEEP 12 cmH2O; Arterial Blood Gas Pressure Support 0 cmH2O; Arterial Blood Gas Tidal Volume 450 ml; Arterial Blood Gas Vent Mode CMV
[2023-04-29] MEDS: ACETAMINOPHEN ELIXIR 325 MG/10.15 ML UDC 650 MG PO ×2 (13:47→22:29)
--- NOTE | 2023-04-29 14:32 | WPDGICN ---
Assessment and Plan Assessment and plan (1) Cardiac arrest: Code(s): I46.9 - Cardiac arrest, cause unspecified Status: Acute Assessment and Plan: + cocaine in UDS required CPR outside hospital now he is intubated in ICU cardiology on board will require neurological reevaluation (2) Coffee ground emesis: Code(s): K92.0 - Hematemesis Status: Acute Assessment and Plan: brown stool noted monitor for signs of bleeding, hold off EGD unless more bleeding given current critical status recommend iv protonix bid for now and keep trending h/h (3) Anemia: Code(s): D64.9 - Anemia, unspecified Status: Acute Assessment and Plan: monitor (4) Upper GI bleed: Code(s): K92.2 - Gastrointestinal hemorrhage, unspecified Status: Acute Assessment and Plan: iv protonix he is tolerating tube feeding by OGT (5) Anoxic brain injury: Code(s): G93.1 - Anoxic brain damage, not elsewhere classified Status: Acute (6) Sepsis: Code(s): A41.9 - Sepsis, unspecified organism Status: Acute (7) Aspiration pneumonia: Code(s): J69.0 - Pneumonitis due to inhalation of food and vomit Status: Acute Assessment and Plan: on abx (8) Respiratory failure: Code(s): J96.90 - Respiratory failure, unspecified, unspecified whether with hypoxia or hypercapnia Status: Acute Assessment and Plan: intubated (9) Cocaine dependence: Code(s): F14.20 - Cocaine dependence, uncomplicated Status: Acute (10) Shock: Code(s): R57.9 - Shock, unspecified Status: Acute GI Consult Note Consult date/time: 04/29/23 14:32 Reason for consult: coffee ground emesis in ngt, cardiac arrest. HPI: Willard Miller is a 62 year old male with past medical history of sinus cancer status post surgery and radiation 2020 although details are unknown at this time (history obtained from records and family members as he is intubated right now). He started having chest pain then walked down the street to EMS facility where he lives and collapsed outside. EMS staff immediately started CPR, given epinephrine and was bag ventilated to ER in [place], found to be on ventricular tachycardia. Report that intubation was difficult and had large amount of vomitus (noted coffee ground).? CT scan of the head was unremarkable and CT chest done in the ER showed bilateral diffuse consolidation.? His urine drug screen was positive for cocaine.? EKG did not show any ST elevation.? UA was negative for any signs of infection.? CTA of the chest was negative for PE.? He was transferred to ICU, started on therapeutic hypothermia protocol.?He is in low dose of levophed, cardiology and children's minister on board. He had OGT and has tube feeding, no more report of coffee ground and he has stool bag with normal brown stool. Hgb 10.6 from 13. Review of Systems Review of Systems: ROS unobtainable: Yes unobtainable due to endotracheal tube and unobtainable due to medical condition PMFSH Past Medical History Medical History (Updated 04/29/23 @ 14:40 by Dav Mckeon MD) Anemia Cancer of sinus Coffee ground emesis History of radiation therapy Respiratory failure Unknown family medical history Family History Family History (Updated 04/27/23 @ 11:19 by Rigo Abbott MD) Other Unknown family medical history Social History Social History (Updated 04/27/23 @ 11:19 by Rigo Abbott MD) Social History: Smokes 1-2 pack per day for more than 40 years, drinks alcohol daily, uses marijuana, past history of cocaine use Smoking status: Current every day smoker Alcohol intake: unknown Substance use: current Substance use type: marijuana Spiritual care concerns: Yes (mosque - requesting last rites) Meds Home Medications and Allergies Home Medications Medication Instructions Recorded Confirmed Type No Home Medications 04/27/23
[2023-04-29] MEDS: CISATRACURIUM BESYLATE 20 MG/10 ML VIAL 12 MG IV PUSH (15:12)
[2023-04-29 15:35] LABS: Glucose Point of Care 97 mg/dl (65-105)
[2023-04-29] MEDS: DEXTROSE 5%/LACTATED RINGERS 1,000 ML 75 ML IV CONT (15:36)
[2023-04-29] MEDS: MIDAZOLAM 100MG/NS 100ML(*CRX) 100 MG/100 ML BAG 8 MG IV CONT (18:20)
[2023-04-29] MEDS: FENTANYL 2,500MCG/NS250ML(*CRX 2,500 MCG/250 ML BAG 20 MCG IV CONT (18:26)
[2023-04-29 18:55] LABS: Glucose Point of Care 118 mg/dl (65-105)
[2023-04-29 22:44] LABS: Glucose Point of Care 119 mg/dl (65-105)
[2023-04-29 22:44] LABS: Glucose Point of Care 131 mg/dl (65-105)
[2023-04-30] VITALS (51 sets, daily range): BP systolic 84–130; BP diastolic 43–81; PULSE 75–90; RESP 18–98; TEMP 37.2–38.1; O2SAT 91–98
[2023-04-30] MEDS: NOREPINEPHRINE 8 MG/D5W 250 ML 8 MG/250 ML BAG 3.75 MG IV CONT (00:25)
[2023-04-30] MEDS: DEXTROSE 5%/LACTATED RINGERS 1,000 ML 125 ML IV CONT (00:25)
[2023-04-30 00:48] LABS: Glucose Point of Care 111 mg/dl (65-105)
[2023-04-30] MEDS: IPRATROPIUM 0.5 MG/ALBUTEROL SULFATE 2.5 MG AMPUL.NEB 3 ML INHALATION ×4 (01:37→19:47)
[2023-04-30] MEDS: PIPERACILLN/TAZ 3.375GM/NS50ML 3.375 GM/50 ML BAG IVPB ×4 (02:27→20:28)
[2023-04-30 03:30] LABS: Hematocrit 31.2 % (42.0-52.0); Hemoglobin 10.2 g/dL (14.0-18.0); Immature Platelet Fraction Pct 7.7 % (0.9-11.2); Mean Corpuscular HGB Conc 32.7 g/dl (32-36); Mean Corpuscular Hemoglobin 30.8 pg (26-34); Mean Corpuscular Volume 94.3 fl (80-100); Mean Platelet Volume 10.4 fl (7.4-10.4); Platelet Count Result 53 k/mm3 (150-375); Red Blood Count 3.31 M/mm3 (4.6-6.20); Red Cell Distribution Width 15.2 % (11.5-14.5); White Blood Count 14.4 K/mm3 (4.5-10.0)
[2023-04-30 03:44] LABS: Alanine Aminotransferase 60 U/L (6-50); Albumin Level 3.1 g/dL (3.5-5.1); Alkaline Phosphatase 42 U/L (38-126); Anion Gap 9 mmol/L (8-16); Aspartate Amino Transferase 149 U/L (17-59); Bilirubin,Total 1.6 mg/dL (0.2-1.3); Blood Urea Nitrogen 29 mg/dL (9-20); Calcium 7.4 mg/dL (8.4-10.2); Carbon Dioxide 26 mmol/L (22-30); Chloride 104 mmol/L (98-107); Estimated CRCL calculation 62 ml/min; Estimated Glomerular Filt Rate > 60; Glucose 116 mg/dL (65-110); Magnesium 1.9 mg/dL (1.6-2.3); Phosphorus 2.6 mg/dL (2.5-4.5); Potassium 4.1 mmol/L (3.4-5.0); Sodium 139 mmol/L (137-145)
[2023-04-30 03:58] LABS: Band Neutrophils Percent 15 % (0-6); Giant Platelets Present; Lymphocytes Absolute Manual 0.28 K/mm3 (1.1-4.5); Monocytes Absolute Manual 0.57 K/mm3 (0.1-0.90); Monocytes Percent Manual 4 % (3-9); Neutrophils Absolute Manual 13.53 K/mm3 (1.3-6.7); Neutrophils Percent Manual 79 % (46-73); Platelet Estimate Decreased (Adequate); Schistocytes None Seen; Total Cells Counted 100
[2023-04-30 03:59] LABS: Anisocytosis 1+
[2023-04-30 04:07] LABS: Alveolar/Arterial O2 Gradient 366.3 mmHg; Base Excess ABG 0.9 mEq/l (+/-2.0); Carboxyhemoglobin 0.2 % THb (0-2.0); Fractional Inspired Oxygen 75 %; HCO3 ABG 26.5 mEq/l (22.0-26.0); Methemoglobin ABG 0.4 %THb (0-1.5); Oxygen Content ABG 15.5 %vol (16.0-22.0); Oxygen Saturation ABG 98.2 % (95.0-100.0); PCO2 ABG 46.7 mmHg (35.0-45.0); PO2 ABG 118.8 mmHg (80.0-100.0); PO2 FiO2 Ratio Arterial Blood 1.58 %; Reduced Hemoglobin 2.4 %THb (0-5.0); Site Drawn ARTLINE; Total Hemoglobin 11.2 g/dL (12.0-18.0); pH ABG 7.372 (7.350-7.450)
[2023-04-30 04:08] LABS: Arterial Blood Gas Vent Mode CMV; Arterial Blood Gas Ventilator rate 28 /MIN; Device VENTILATOR
[2023-04-30 04:09] LABS: Arterial Blood Gas PEEP 12 cmH2O; Arterial Blood Gas Tidal Volume 450 ml
[2023-04-30 05:06] LABS: Glucose Point of Care 131 mg/dl (65-105)
[2023-04-30] MEDS: HYDROCORTISONE SODIUM SUCCINATE 100 MG/2 ML VIAL IV PUSH ×3 (06:18→21:00)
[2023-04-30] MEDS: LEVOTHYROXINE SODIUM INJ 100 MCG/5 ML VIAL 50 MCG IV PUSH (06:18)
[2023-04-30] MEDS: CENTRAL LINE FLUSH 10 ML IV PUSH ×3 (06:23→20:27)
[2023-04-30] MEDS: FENTANYL 2,500MCG/NS250ML(*CRX 2,500 MCG/250 ML BAG 20 MCG IV CONT (06:33)
[2023-04-30] MEDS: MIDAZOLAM 100MG/NS 100ML(*CRX) 100 MG/100 ML BAG 8 MG IV CONT (06:35)
[2023-04-30] MEDS: DEXTROSE 10% 1,000 ML 50 ML IV CONT (08:02)
[2023-04-30 08:50] LABS: Glucose Point of Care 81 mg/dl (65-105)
[2023-04-30] MEDS: PANTOPRAZOLE SODIUM IV 40 MG VIAL IV PUSH ×2 (08:50→20:27)
[2023-04-30] MEDS: MINERAL OIL/WHITE PETROLATUM OINTMENT 1 APPLIC EACH EYE ×2 (08:53→20:50)
[2023-04-30] MEDS: CALCIUM GLUC 2,000 MG/NS 100ML 2,000 MG/100 ML BAG 100 MG IVPB (08:55)
[2023-04-30] MEDS: FUROSEMIDE INJ 100 MG/10 ML VIAL 80 MG IV PUSH (08:58)
--- NOTE | 2023-04-30 11:15 | PCFNICU ---
ICU Rounding Note: Pt current nutrition is Vital AF 1.2. Nutrition recommendation: Vital 1.5 at 55 ml/hr. Last recorded weight is 77.8 kg, up from 73 kg on admit. Bowel Motility: FMS Labs Reviewed:Glu 116, BUN 29, Alb 3.1,Hct 31.2, Hgb 10.2 Meds Noted:Fentanyl, Versed, Protonix,Levophed, Synthroid. Skin: WNL Additional Notes: Patient remains on mechanical vent. Tube feedings on hold for elevated residuals. Discussed with Agriculture Technician today. Formula change being recommending for Vital 1.5 at 55 ml/hr. Tube feedings at goal rate providing 1815 kcals/74 gms protein/924 ml water. Flush being used of D5. Agree with diet orders at this time. Following daily in ICU rounds. Monitor in ICU rounds and reassess weight labs ,skin , meds, tube feedings every Sunday and Sunday. .
[2023-04-30 12:00] LABS: Glucose Point of Care 116 mg/dl (65-105)
--- NOTE | 2023-04-30 12:12 | WPDINTPN ---
Progress Note: A&P Assessment and Plan (1) Cardiac arrest: Code(s): I46.9 - Cardiac arrest, cause unspecified Status: Acute Assessment and Plan: It appears the patient presented at an EMS facility and collapsed. Received CPR and epinephrine. No documentation available and unknown down time. When arrived in the ER he was being bag ventilated V-tach with pulse. Difficult and prolonged intubation and required multiple times. Received amiodarone push which led to sinus bradycardia which was treated with atropine. Since then patient has been in sinus rhythm with intermittent junctional bradycardia. He has had runs of V-tach in the ER and in the ICU. Differential diagnosis is broad. CTA negative for PE Serial troponins consistent with non STEMI and echocardiogram does not show any significant abnormality Aspirin and anticoagulation were held due to GI bleed Beta-gail held due to shock Amiodarone infusion was initiated but stopped due to worsening bradycardia and junctional bradycardia Cardiology following Echo as below Treatment of sepsis and pneumonia as below Urine drug screen positive for cocaine. Patient also has heavy alcohol use history Treatment of respiratory failure and hypoxia as below TTM protocol for anoxic brain injury underway Treatment of acidosis as below Monitor and treat electrolyte abnormalities 04/27 EKG shows junctional rhythm with nonspecific ST T-wave changes Echo 04/26 Summary ? 1. Technically somewhat challenging exam with patient on ventilator, definity contrast injected. ? 2. Normal appearing will left ventricular size and systolic contractility with normal ejection fraction. ? 3. Mildly sclerotic aortic valve otherwise no significant valvular dysfunction. ? 4. No pericardial. (2) Acute respiratory failure: Code(s): J96.00 - Acute respiratory failure, unspecified whether with hypoxia or hypercapnia Status: Acute Assessment and Plan: Acute respiratory failure secondary to cardiac arrest aspiration pneumonia which likely has progressed to ARDS CT scan was negative for PE Ventilator settings reviewed and will increase rate to 28 and tidal volume is at 450 and peep at 15 Patient was significantly hypoxic and is currently on 100% FiO2. He was started on Nimbex infusion and placed in prone position 04/27 FiO2 weaned to 80% peep is still at 15 patient will be supine this morning and to prone him back this after unless shows more improvement. Continue to wean FiO2. Continue Bronchodilators Antibiotics as below 04/28 PEEP is down to 12 and FiO2 is at 60%. Will reposition patient in supine position this morning and see how he tolerated. Depending on how he tolerates supine position will make decision on whether to the prone patient today 04/29 peep at 12 and FiO2 was 75% this morning. I was Able to wean it down to 65%. Patient placed in supine position will see how he tolerates Patient appears to have gone into ARDS. Low tidal volume ventilation 6 mL/kg tidal volume according to his height. Wean FiO2. Continue PEEP of 12. Will try to wean off neuromuscular gail if possible. Chest x-ray reviewed advance ET tube by 2 cm (3) Sepsis: Code(s): A41.9 - Sepsis, unspecified organism Status: Acute Assessment and Plan: Sepsis secondary to aspiration pneumonia UA negative for UTI Procalcitonin 16.8 Blood cultures have been negative till now Continue empiric Zosyn (4) V tach: Code(s): I47.20 - Ventricular tachycardia, unspecified Status: Inactive Assessment and Plan: See above (5) Aspiration pneumonia: Code(s): J69.0 - Pneumonitis due to inhalation of food and vomit Status: Acute Assessment and Plan: Patient vomited on presentation now has bilateral consolidation suggestive of pneumonia which is likely aspiration Treatment as above (6) Shock: Code(s): R57.9 - Shock, unspecified Status: Acute Assessment and P
[2023-04-30 12:24] LABS: Calcium 8.1 mg/dL (8.4-10.2); Magnesium 1.8 mg/dL (1.6-2.3); Phosphorus 2.5 mg/dL (2.5-4.5)
[2023-04-30 12:48] LABS: Creatine Kinase 5904 U/L (55-170)
--- NOTE | 2023-04-30 14:39 | P.PNCROSS_ITS ---
Event Note Event Note Event Note: Unable to feel or Doppler radial pulse on the left side. Patient has had now f or CT scan of the chest and CTA of left upper extremity. CT of the chest shows bilateral pneumonia. CTA of the left upper extremity was incomplete study due to miss timing of the contrast as per the radiologist. Patient will go down repeat study. On exam both hands are cold and mottled left worse than right. Right radial is dopplerable but not palpable. Unable to Doppler left radial artery pulse.
[2023-04-30] MEDS: ACETAMINOPHEN ELIXIR 325 MG/10.15 ML UDC 650 MG PO (16:25)
--- NOTE | 2023-04-30 16:49 | WPDGIPROGNO ---
Progress Note: A&P Assessment and Plan (1) Coffee ground emesis: Code(s): K92.0 - Hematemesis Status: Acute Assessment and Plan: no more episode and hgb stable at 10 stool is brown no EGD intervention unless obvious bleeding since he is so sick, probably he has esophagitis/gastritis continue with iv protonix bid (2) Anoxic brain injury: Code(s): G93.1 - Anoxic brain damage, not elsewhere classified Status: Acute (3) Cardiac arrest: Code(s): I46.9 - Cardiac arrest, cause unspecified Status: Acute Assessment and Plan: by cardiology and patient account analyst (4) Acute respiratory failure: Code(s): J96.00 - Acute respiratory failure, unspecified whether with hypoxia or hypercapnia Status: Acute Assessment and Plan: still intubated, aspiration pneumonia (5) Rhabdomyolysis: Code(s): M62.82 - Rhabdomyolysis Status: Acute (6) Peripheral arterial disease: Code(s): I73.9 - Peripheral vascular disease, unspecified Status: Acute (7) Anemia: Code(s): D64.9 - Anemia, unspecified Status: Acute Subjective Date/time seen: 04/30/23 16:49 Interval history: no more report of coffee ground material, also normal brown stool in container still critically ill, intubated, on pressors Review of Systems Review of Systems: All systems reviewed & are unremarkable except as noted in HPI and below Exam Narrative: General: Pt is sedated, intubated and on mechanical ventilation neck: supple ENT: OGT in place Lungs/Chest: Trachea central Coarse BS B/L, . Wheezing on left side Cardiac: RRR Normal S1 S2. No murmurs Circulation: Feet are cold and mottled. Toes on both feet are dark and dusky. Abdomen: Decreased bowel sounds. Soft. NT. ND. Extremities: No clubbing, cyanosis or edema.feet are cold and mottled : Garcia in place Neurologic: Unable to assess due to sedation and chemical paralysis. Objective Data Vital Signs Vital Signs: Vital Signs - 24 hr 04/29/23 17:00 04/29/23 17:47 04/29/23 18:20 Temperature Pulse Rate 85 85 85 Respiratory Rate 28 H 28 H 28 H Blood Pressure 112/60 Pulse Oximetry Oxygen Delivery Fraction of Inspired Oxygen 04/29/23 18:26 04/29/23 18:26 04/29/23 18:00 Temperature 100.8 F H Pulse Rate 84 84 84 Respiratory Rate 28 H 28 H 18 Blood Pressure 109/62 Pulse Oximetry 96 Oxygen Delivery Fraction of Inspired Oxygen 04/29/23 18:00 04/29/23 18:00 04/29/23 19:15 Temperature Pulse Rate 84 84 82 Respiratory Rate 28 H 28 H Blood Pressure 121/63 112/60 Pulse Oximetry Oxygen Delivery Fraction of Inspired Oxygen 04/29/23 18:00 04/29/23 20:07 04/29/23 20:08 Temperature Pulse Rate 80 79 79 Respiratory Rate 28 H Blood Pressure 121/63 Pulse Oximetry 97 Oxygen Delivery Mechanical Ventilation Fraction of Inspired Oxygen 75 04/29/23 20:24 04/29/23 21:28 04/29/23 20:00 Temperature Pulse Rate 82 84 Respiratory Rate 28 H 28 H Blood Pressure 103/72 Pulse Oximetry Oxygen Delivery Fraction of Inspired Oxygen 75 04/29/23 20:00 04/29/23 22:00 04/29/23 20:00 Temperature 100.5 F H 100.0 F H Pulse Rate 80 85 80 Respiratory Rate 28 H 28 H Blood Pressure 117/62 115/71 117/62 Pulse Oximetry 96 97 Oxygen Delivery Fraction of Inspired Oxygen 04/29/23 22:00 04/29/23 20:00 04/29/23 22:00 Temperature Pulse Rate 84 80 84 Respiratory Rate 28 H 28 H Blood Pressure 115/71 Pulse Oximetry Oxygen Delivery Fraction of Inspired Oxygen 04/29/23 20:00 04/29/23 22:00 04/29/23 22:29 Temperature 100 F H Pulse Rate 80 84 Respiratory Rate 28 H 28 H Blood Pressure Pulse Oximetry Oxygen Delivery Fraction of Inspired Oxygen 04/29/23 20:00 04/29/23 22:00 04/29/23 20:00 Temperature Pulse Rate 79 80 Respiratory Rate Blood Pressure Pulse Oximetry Oxygen Delivery Me
[2023-04-30] MEDS: METOCLOPRAMIDE HCL INJ 10 MG/2 ML VIAL IV PUSH (17:31)
--- NOTE | 2023-04-30 18:55 | P.PNCROSS_ITS ---
Event Note Event Note Event Note: CT of the left hand showed IMPRESSION: 1.? No discernible arterial contrast below the level of the wrist and with prominent residual dense contrast in the veins at the dorsum of the hand related to the injection. The absence of washout of the venous contrast greater than one hour following the injection would be consistent with essentially absent perfusion to the hand. There is abrupt cut off of the arterial contrast in the radial artery proximal 7 cm distal to the elbow suggesting thrombus. The ulnar and both anterior and posterior interosseous arteries becoming progressively more atretic with no evident arterial contrast below the wrist without a discrete site of occlusion. Spoke to Dr. Fierro with vascular surgery at [facility] and discussed case with him along with CT scan results and exam findings. he states that patient is not a candidate for endovascular or surgical repair considering ongoing shock requiring vasopressor, unreliable candidate for anticoagulation due to GI bleed and guarded prognosis secondary to suspected anoxic brain injury. He said that he would be willing to consult and evaluate the patient if patient is accepted by [facility] ICU as a medical transfer. I also spoke to the hand surgery attending and he also confirmed the patient would not be a candidate for any surgical intervention due to above- mentioned reason and multiple comorbidities I spoke to Dr. Dickerson who is a MICU critical care fellow. She also believes that patient has limited benefit of transferred to [facility] considering poor prognosis and minimal surgical options. She will accept the patient if bed becomes available and patient will be put on wait list at this time. Accepting physician Dr. Colindres. Patient not started on any anticoagulation due to presentation with upper GI bleed which appears to now have stabilized.
[2023-04-30] MEDS: CISATRACURIUM BESYLATE 200 MG in DEXTROSE 5% 80 ML IV CONT (19:19)
[2023-04-30 19:22] LABS: Glucose Point of Care 109 mg/dl (65-105)
[2023-04-30 19:49] LABS: Hematocrit 30.6 % (42.0-52.0); Hemoglobin 10.2 g/dL (14.0-18.0); Immature Platelet Fraction Pct 9.1 % (0.9-11.2); Mean Corpuscular HGB Conc 33.3 g/dl (32-36); Mean Corpuscular Hemoglobin 30.8 pg (26-34); Mean Corpuscular Volume 92.4 fl (80-100); Mean Platelet Volume 10.6 fl (7.4-10.4); Platelet Count Result 42 k/mm3 (150-375); Red Blood Count 3.31 M/mm3 (4.6-6.20); Red Cell Distribution Width 15.4 % (11.5-14.5); White Blood Count 15.7 K/mm3 (4.5-10.0)
[2023-04-30 19:57] LABS: INR 1.1; Prothrombin Time 15.1 Seconds (11.1-14.7)
[2023-04-30 19:58] LABS: Partial Thromboplastin Time 43.9 Seconds (22.3-36.8)
[2023-04-30 20:06] LABS: Band Neutrophils Percent 14 % (0-6); Monocytes Absolute Manual 0.47 K/mm3 (0.1-0.90); Monocytes Percent Manual 3 % (3-9); Neutrophils Absolute Manual 15.22 K/mm3 (1.3-6.7); Neutrophils Percent Manual 83 % (46-73); Platelet Estimate Decreased (Adequate); Total Cells Counted 100
[2023-04-30 20:07] LABS: Anisocytosis 2+; Schistocytes None Seen
[2023-04-30] MEDS: HEPARIN SOD/D5W 100 UNITS/ML 25,000 UNITS/250 ML BAG 14 UNITS IV CONT (20:30)
[2023-04-30] MEDS: MIDAZOLAM 100MG/NS 100ML(*CRX) 100 MG/100 ML BAG 6 MG IV CONT (22:32)
[2023-04-30] MEDS: FENTANYL 2,500MCG/NS250ML(*CRX 2,500 MCG/250 ML BAG 15 MCG IV CONT (22:33)
[2023-04-30 23:03] LABS: Glucose Point of Care 125 mg/dl (65-105)
[2023-05-01] VITALS (31 sets, daily range): BP systolic 84–118; BP diastolic 47–70; PULSE 68–79; RESP 26–28; TEMP 37.3–38.4; O2SAT 90–94
[2023-05-01 00:15] LABS: Hematocrit 29.6 % (42.0-52.0); Immature Platelet Fraction Pct 9.2 % (0.9-11.2); Mean Corpuscular HGB Conc 33.8 g/dl (32-36); Mean Corpuscular Hemoglobin 30.6 pg (26-34); Mean Corpuscular Volume 90.5 fl (80-100); Mean Platelet Volume 10.1 fl (7.4-10.4); Platelet Count Result 38 k/mm3 (150-375); Red Blood Count 3.27 M/mm3 (4.6-6.20); Red Cell Distribution Width 15.3 % (11.5-14.5); White Blood Count 16.7 K/mm3 (4.5-10.0)
[2023-05-01 00:43] LABS: Total Cells Counted 100
[2023-05-01 00:44] LABS: Band Neutrophils Percent 20 % (0-6); Lymphocytes Absolute Manual 0.16 K/mm3 (1.1-4.5); Lymphocytes Percent Manual 1 % (18-44); Monocytes Percent Manual 3 % (3-9); Neutrophils Absolute Manual 16.03 K/mm3 (1.3-6.7); Neutrophils Percent Manual 76 % (46-73); Platelet Estimate Decreased (Adequate)
[2023-05-01 00:45] LABS: Anisocytosis 1+; Ovalocytes 1+; Schistocytes None Seen
[2023-05-01 00:55] LABS: Partial Thromboplastin Time 176.5 Seconds (22.3-36.8)
[2023-05-01] MEDS: METOCLOPRAMIDE HCL INJ 10 MG/2 ML VIAL IV PUSH ×3 (01:06→11:56)
[2023-05-01] MEDS: PIPERACILLN/TAZ 3.375GM/NS50ML 3.375 GM/50 ML BAG IVPB ×3 (01:07→12:59)
[2023-05-01] MEDS: IPRATROPIUM 0.5 MG/ALBUTEROL SULFATE 2.5 MG AMPUL.NEB 3 ML INHALATION ×2 (01:40→07:42)
[2023-05-01 02:15] LABS: Glucose Point of Care 121 mg/dl (65-105)
[2023-05-01 04:33] LABS: Alveolar/Arterial O2 Gradient 280.8 mmHg; Carboxyhemoglobin 0.3 % THb (0-2.0); Fractional Inspired Oxygen 55 %; HCO3 ABG 27.3 mEq/l (22.0-26.0); Methemoglobin ABG 0.4 %THb (0-1.5); Oxygen Content ABG 14.1 %vol (16.0-22.0); Oxygen Saturation ABG 93.9 % (95.0-100.0); Oxyhemoglobin 92.7 % THb (90.0-100.0); PCO2 ABG 40.6 mmHg (35.0-45.0); PO2 ABG 66.2 mmHg (80.0-100.0); Reduced Hemoglobin 6.6 %THb (0-5.0); Total Hemoglobin 10.8 g/dL (12.0-18.0); pH ABG 7.445 (7.350-7.450)
[2023-05-01 04:34] LABS: Arterial Blood Gas PEEP 12 cmH2O; Arterial Blood Gas Tidal Volume 450 ml; Arterial Blood Gas Vent Mode CMV; Arterial Blood Gas Ventilator rate 28 /MIN; Device VENTILATOR; Site Drawn ARTLINE
[2023-05-01 05:00] LABS: Basophils Percent Auto 0.1 % (0.2-1.2); Eosinophils Absolute Auto 0.1 K/mm3 (0-0.3); Eosinophils Percent Auto 0.6 % (0-4.4); Hematocrit 28.8 % (42.0-52.0); Hemoglobin 9.7 g/dL (14.0-18.0); Immature Granulocyte Absolute 0.09 K/mm3 (0.00-0.031); Immature Granulocyte Percent A 0.6 % (0-0.5); Immature Platelet Fraction Pct 9.7 % (0.9-11.2); Lymphocytes Absolute Auto 0.59 K/mm3 (0.9-3.2); Lymphocytes Percent Auto 3.7 % (18.3-44.2); Mean Corpuscular HGB Conc 33.7 g/dl (32-36); Mean Corpuscular Hemoglobin 30.6 pg (26-34); Mean Corpuscular Volume 90.9 fl (80-100); Mean Platelet Volume 11.1 fl (7.4-10.4); Monocytes Absolute Auto 0.4 K/mm3 (0.1-0.6); Monocytes Percent Auto 2.3 % (2.6-8.5); Neutrophils Percent Auto 92.7 % (45.5-73.1); Platelet Count Result 33 k/mm3 (150-375); Red Blood Count 3.17 M/mm3 (4.6-6.20); White Blood Count 16.2 K/mm3 (4.5-10.0)
[2023-05-01 05:20] LABS: Alanine Aminotransferase 68 U/L (6-50); Albumin Level 2.8 g/dL (3.5-5.1); Alkaline Phosphatase 55 U/L (38-126); Anion Gap 5 mmol/L (8-16); Aspartate Amino Transferase 106 U/L (17-59); Bilirubin,Total 1.6 mg/dL (0.2-1.3); Blood Urea Nitrogen 35 mg/dL (9-20); Calcium 7.6 mg/dL (8.4-10.2); Carbon Dioxide 32 mmol/L (22-30); Chloride 101 mmol/L (98-107); Estimated CRCL calculation 54 ml/min; Estimated Glomerular Filt Rate 52; Glucose 145 mg/dL (65-110); Magnesium 1.9 mg/dL (1.6-2.3); Phosphorus 2.2 mg/dL (2.5-4.5); Potassium 3.3 mmol/L (3.4-5.0); Sodium 138 mmol/L (137-145)
[2023-05-01] MEDS: HYDROCORTISONE SODIUM SUCCINATE 100 MG/2 ML VIAL IV PUSH ×2 (05:31→12:59)
[2023-05-01] MEDS: LEVOTHYROXINE SODIUM INJ 100 MCG/5 ML VIAL 50 MCG IV PUSH (05:31)
[2023-05-01] MEDS: CENTRAL LINE FLUSH 10 ML IV PUSH ×2 (05:32→13:06)
[2023-05-01] MEDS: NOREPINEPHRINE 8 MG/D5W 250 ML 8 MG/250 ML BAG 16.88 MG IV CONT (05:45)
[2023-05-01] MEDS: DEXTROSE 10% 1,000 ML 50 ML IV CONT (05:45)
[2023-05-01 05:52] LABS: Dohle Bodies Present; Platelet Estimate Decreased (Adequate); Schistocytes None Seen
[2023-05-01 06:12] LABS: Creatine Kinase 3042 U/L (55-170)
[2023-05-01 08:41] LABS: Glucose Point of Care 143 mg/dl (65-105)
[2023-05-01] MEDS: PANTOPRAZOLE SODIUM IV 40 MG VIAL IV PUSH (08:48)
[2023-05-01] MEDS: POTASSIUM/PHOSPHORUS/SODIUM 1.5 GM PACKET 1 PACKET PO (08:48)
[2023-05-01] MEDS: KCL 40 MEQ/WATER 100 ML 100 ML 25 ML IVPB (08:51)
[2023-05-01] MEDS: MINERAL OIL/WHITE PETROLATUM OINTMENT 1 APPLIC EACH EYE (08:51)
--- NOTE | 2023-05-01 09:44 | WPDINTPN ---
Progress Note: A&P Assessment and Plan (1) Cardiac arrest: Code(s): I46.9 - Cardiac arrest, cause unspecified Status: Acute Assessment and Plan: It appears the patient presented at an EMS facility and collapsed. Received CPR and epinephrine. No documentation available and unknown down time. When arrived in the ER he was being bag ventilated V-tach with pulse. Difficult and prolonged intubation and required multiple times. Received amiodarone push which led to sinus bradycardia which was treated with atropine. Since then patient has been in sinus rhythm with intermittent junctional bradycardia. He has had runs of V-tach in the ER and in the ICU. -Differential diagnosis is broad. -CTA negative for PE -Serial troponins on admission consistent with non STEMI and echocardiogram does not show any significant abnormality -Aspirin and anticoagulation were held due to GI bleed -Beta-gail held due to shock -Amiodarone infusion was initiated but stopped due to worsening bradycardia and junctional bradycardia -Cardiology following -Echo as below -Treatment of sepsis and pneumonia as under -Urine drug screen positive for cocaine. Patient also has history of heavy alcohol and tobacco use -Treatment of respiratory failure and hypoxia as below -Status post target temperature management post cardiac arrest Monitor and treat electrolyte abnormalities 04/27 EKG shows junctional rhythm with nonspecific ST T-wave changes Will have Neurology evaluate the patient and obtain EEG once he is off the Nimbex infusion Echo 04/26 Summary ? 1. Technically somewhat challenging exam with patient on ventilator, definity contrast injected. ? 2. Normal appearing will left ventricular size and systolic contractility with normal ejection fraction. ? 3. Mildly sclerotic aortic valve otherwise no significant valvular dysfunction. ? 4. No pericardial. (2) Acute respiratory failure: Code(s): J96.00 - Acute respiratory failure, unspecified whether with hypoxia or hypercapnia Status: Acute Assessment and Plan: Acute respiratory failure secondary to cardiac arrest aspiration pneumonia which likely has progressed to ARDS 04/26: CT scan was negative for PE -patient was hypoxic on admission, had to be placed in prone position -04/27 FiO2 weaned to 80% peep is still at 15 patient will be supine this morning and to prone him back this after unless shows more improvement. Continue to wean FiO2. Continue Bronchodilators -04/28 PEEP is down to 12 and FiO2 is at 60%. Will reposition patient in supine position this morning and see how he tolerated. Depending on how he tolerates supine position will make decision on whether to the prone patient today -04/29 peep at 12 and FiO2 was 75% this morning. I was Able to wean it down to 65%. Patient placed in supine position will see how he tolerates -Patient appears to have gone into ARDS. Low tidal volume ventilation 6 mL/kg tidal volume according to his height. Wean FiO2. -Chest x-ray and ABGs reviewed, decrease rate to 26, continue peep of 12 at 55% FiO2 -sedated with fentanyl, Versed, Nimbex for neuromuscular blockade and ventilator synchrony -have asked the bedside RN to wean Nimbex to off (3) Shock: Code(s): R57.9 - Shock, unspecified Status: Acute Assessment and Plan: Patient likely has a multifactorial shock secondary to sepsis and cardiogenic -Patient had received more than 3.5 L of fluid prior to coming to the ICU. Intake and output in our [employer] are not fully accurate. -He does have worsening infiltrate and hypoxia -Fluids were discontinued earlier but had to be restarted due to hypoglycemia and will try to wean down -Vasopressin weaned off -Continue Levophed, maintain MAP > 65 mmHg at all times -Continue stress dose hydrocortisone -acidosis improved with treatment -status post albumin UA negative for UTI Procalcitonin 16.8 Blood cultures have been negative till now
[2023-05-01 10:24] LABS: Glucose Point of Care 115 mg/dl (65-105)
--- NOTE | 2023-05-01 10:52 | PM.PNCARD ---
Progress Note: A&P Assessment and Plan (1) Cardiac arrest: Code(s): I46.9 - Cardiac arrest, cause unspecified Status: Acute Assessment and Plan: Out of hospital [place] cardiac arrest. Now critically ill in the ICU with shock, concerns for GI bleed, anoxic brain injury. Completed hypothermia protocol. Echocardiogram shows LVEF 65-70%, no significant valvular disease. Continue medical management. (2) Acute respiratory failure: Code(s): J96.00 - Acute respiratory failure, unspecified whether with hypoxia or hypercapnia Status: Acute Assessment and Plan: Remains intubated. (3) Shock: Code(s): R57.9 - Shock, unspecified Status: Acute Assessment and Plan: On Levophed. Wean pressors as tolerated. (4) Anoxic brain injury: Code(s): G93.1 - Anoxic brain damage, not elsewhere classified Status: Acute Assessment and Plan: Concern for anoxic brain injury. Unclear how long down time was before ROSC was achieved. Portends a poor prognosis. (5) Upper GI bleed: Code(s): K92.2 - Gastrointestinal hemorrhage, unspecified Status: Acute Assessment and Plan: GI consulted. Holding antiplatelet and anticoagulation currently. No plans for EGD intervention per GI as patient is too sick unless he develops obvious bleeding. (6) Acute kidney injury: Code(s): N17.9 - Acute kidney failure, unspecified Status: Acute Assessment and Plan: In setting of cardiac arrest, shock, sepsis. (7) Peripheral arterial disease: Code(s): I73.9 - Peripheral vascular disease, unspecified Status: Acute Assessment and Plan: Concern for LUE ischemia. CT shows: 1.? No discernible arterial contrast below the level of the wrist and with prominent residual dense contrast in the veins at the dorsum of the hand related to the injection. The absence of washout of the venous contrast greater than one hour following the injection would be consistent with essentially absent perfusion to the hand. There is abrupt cut off of the arterial contrast in the radial artery proximal 7 cm distal to the elbow suggesting thrombus. The ulnar and both anterior and posterior interosseous arteries becoming progressively more atretic with no evident arterial contrast below the wrist without a discrete site of occlusion. Dr. Abbott discussed case with Vascular Surgery at [facility] -- patient is not a candidate for endovascular or surgical intervention at this time given his overall poor prognosis. Plan Recommendations and plan discussed with Group Sales Coordinator. Subjective Date/time seen: 05/01/23 10:52 Interval history: Reason for visit: [place] cardiac arrest HPI: This is a 62-year-old man I am seeing at the request of the retail personal banker for consultation following resuscitation from cardiac arrest.? The history on this case is not entirely complete however what we know is that he was transferred here this morning after being resuscitated out of ventricular tachycardia in the emergency room up in [place].? The family in terms of the mother and the sister are in the room are with me at this time they indicate he lives next door to a EMS facility and that he went there in the middle of the night reporting symptoms of dyspnea.? Apparently while he was there he collapsed and experienced cardiac arrest.? The chart indicates that he was brought to the emergency room in [place] and was in ventricular tachycardia at that time.? According to the records he received intravenous amiodarone in the emergency room after which she was in a narrow QRS rhythm but was bradycardic received some atropine.? Then there was a somewhat prolonged effort to intubate the this patient when he was successfully intubated he was then transferred to [facility] for further evaluation and management.? His electrocardiogram now shows what appears to be a junctional rhythm with a heart rate of 60 and he is receiving pressure support
--- NOTE | 2023-05-01 11:37 | PCNFU ---
Nutrition Follow-Up Complete: Inadequate Energy Expenditure as related to mechanical ventilation as evidenced by NPO. Goal: Meet estimated nutritional needs. Patient is progressing towards goal. We will continue current goal. Pt current nutrition is Vital 1.5 at 55 ml/hr. Last recorded weight is 78 kg, up from 73 kg on admit. Bowel Motility: FMS Labs Reviewed:Glu 145, Cr 1.4,K 3.3,GFR 52, BUN 35, Alb 2.8, Hct 28.8,Hgb 9.7 Meds Noted:Fentanyl, Versed, Protonix, Zosyn,Reglan, Levophed Skin: WNL Additional Notes: Patient remains on mechanical vent and tube feedings of Vital 1.5 at 55 ml/hr. Tube feedings are being tolerated at this time and providing 1815 kcals/74 gms protein/924 ml water. Flush 30 ml q 4 hours. This is meeting 99% kcal needs at 25 kcal/kg and 84% protein needs at 1.2-1.4 gm/kg. Plans for EEG at somepoint. Agree with diet orders. Monitor in ICU rounds and reassess weight labs ,skin , meds, tube feedings every Sunday and Sunday.
[2023-05-01] MEDS: ACETAMINOPHEN ELIXIR 325 MG/10.15 ML UDC 650 MG PO (11:56)
--- NOTE | 2023-05-01 12:14 | WPDNEURCNPN ---
Consult date: 05/01/23 Reason for consult: hypoxic ischemic encephalopathy secondary to cardiopulmonary arrest HPI: Willard Miller is a 62 year old maleAdmitted to the hospital through the emergency room ,patient walked over to EMS facility and collapsed, CPR was initiated by EMS staff when he did respond with the pulse but remained in respiratory distress and was being bagged upon arrival to the emergency department ,he was reportedly in V-tach and was subsequently intubated and placed on a vent, is not reportedly allergic to any medications, and on initial examination he was noted to be thin and unresponsive without any other notable findings, he received amiodarone 150mg, his heart rate dropped into the 30s ,was intubated on several attempts and placed on a ventilator, his pCO2 was 50 ,bicarb 15.6 PO2 64 and heart rate of 84, subsequent to resuscitation lactic acid 9.5 ,D-dimer greater than 30, he was started on amiodarone drip ,given Zosyn also 1mg of atropine, subsequently echocardiogram with mildly sclerotic aortic valve but otherwise normal, admitted to critical care unit, CTA negative for PE ,aspirinand anticoagulation held due to GI bleed, received amiodarone infusion started on treatment for sepsis and pneumonia, urinary drug screen positive for cocaine and also he has a very heavy alcohol user with underlying cardiomyopathy ,placed on TTE M protocol for anoxic brain injury, CT of the chest negative for PE, he was noted to be hypoxic on 100% FiO2 and started on Nimbex infusion and peep increased to 15 and placed in prone position ,started on empiric Zosyn, on x-ray chest noted to have bilateral consolidation likely aspiration pneumonia, maintained on therapeutic hypothermia, started on levothyroxine because of the TSH of 81.7 and T4 of 0.53 as per the information from the family he smoked 1 to 2 pack per day for more than 40 years, heavily used alcohol t also used the cocaine in the past, in the past has he has 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, cardiology consultation has beenobtained, has been noted to have coffee-ground emesis gastroenterology consultation has been obtained, none at present being treated for the illness, anoxic brain injury ,being weaned of Levophed noted to have left upper extremity ischemia, [facility] because of the underlying problem he was not a candidate for endovascular surgical intervention , not considered for transfer to [facility] further intervention but is still awaiting for the bed, his urine output is adequate ,tolerating the feeding ,sedated with fentanyl Versed infusion and Nimbex infusion for neuromuscular blockade and vent synchrony also on stress dose steroids Levophed and pain infusion after the CTA showed no arterial contrast below the level of the wrist with absent perfusion to the left hand, Review of Systems Review of Systems: All systems reviewed & are unremarkable except as noted in HPI and below PMFSH Past Medical History Medical History (Updated 05/01/23 @ 12:07 by Komal Lugo MD) Anemia Cancer of sinus Coffee ground emesis History of radiation therapy Respiratory failure Unknown family medical history Family History Family History (Updated 04/27/23 @ 11:19 by Rigo Abbott MD) Other Unknown family medical history Social History Social History (Updated 04/27/23 @ 11:19 by Rigo Abbott MD) Social History: Smokes 1-2 pack per day for more than 40 years, drinks alcohol daily, uses marijuana, past history of cocaine use Smoking status: Current every day smoker Alcohol intake: unknown Substance use: current Substance use type: marijuana Spiritual care concerns: Yes (synagogue - requesting last rites) Meds Home Medications and Allergies Home Medications Medication Instructions Recorded Confirmed Type No Home Medications 04/27/23 04/27/23 History Allergies Allergy/AdvReac Type Sev
[2023-05-01 12:15] LABS: Glucose Point of Care 87 mg/dl (65-105)
--- NOTE | 2023-05-01 12:46 | WPDNEURCNPN ---
Assessment and Plan Assessment and plan (1) Anoxic brain injury: Code(s): G93.1 - Anoxic brain damage, not elsewhere classified Status: Acute Plan Anoxic brain injury will obtain the EEG when ready. Discussed briefly with his who happens to be in the room Consult date: 05/01/23 HPI: Willard Miller is a 62 year old male [facility] Past Medical History Medical History (Updated 05/01/23 @ 12:51 by Ned Marquis MD) Anemia Cancer of sinus Coffee ground emesis History of radiation therapy Respiratory failure Unknown family medical history Family History Family History (Updated 04/27/23 @ 11:19 by Rigo Abbott MD) Other Unknown family medical history Social History Social History (Updated 04/27/23 @ 11:19 by Rigo Abbott MD) Social History: Smokes 1-2 pack per day for more than 40 years, drinks alcohol daily, uses marijuana, past history of cocaine use Smoking status: Current every day smoker Alcohol intake: unknown Substance use: current Substance use type: marijuana Spiritual care concerns: Yes (anglican - requesting last rites) Meds Home Medications and Allergies Home Medications Medication Instructions Recorded Confirmed Type No Home Medications 04/27/23 04/27/23 History Allergies Allergy/AdvReac Type Severity Reaction Status Date / Time No Known Allergies Allergy Unknown Verified 04/27/23 13:35 Vital Signs Vital Signs - 24 hr 04/30/23 13:08 04/30/23 13:15 04/30/23 14:00 Temperature 37.4 C Pulse Rate 82 85 90 Respiratory Rate 28 H 18 Blood Pressure 130/69 Pulse Oximetry 94 92 Oxygen Delivery Mechanical Ventilation Fraction of Inspired Oxygen 55 04/30/23 14:00 04/30/23 16:00 04/30/23 16:15 Temperature Pulse Rate 85 83 82 Respiratory Rate Blood Pressure 105/64 84/43 L 88/47 L Pulse Oximetry Oxygen Delivery Fraction of Inspired Oxygen 04/30/23 16:00 04/30/23 14:00 04/30/23 16:00 Temperature Pulse Rate 83 85 83 Respiratory Rate 28 H 28 H 28 H Blood Pressure 84/43 L 105/64 Pulse Oximetry Oxygen Delivery Fraction of Inspired Oxygen 04/30/23 14:00 04/30/23 16:00 04/30/23 14:00 Temperature Pulse Rate 85 83 85 Respiratory Rate 28 H 28 H 28 H Blood Pressure Pulse Oximetry Oxygen Delivery Fraction of Inspired Oxygen 04/30/23 16:25 04/30/23 16:30 04/30/23 16:00 Temperature 37.9 C H 37.9 C H Pulse Rate 82 81 Respiratory Rate 28 H 23 H Blood Pressure 93/50 L 100/60 Pulse Oximetry 91 Oxygen Delivery Fraction of Inspired Oxygen 04/30/23 14:00 04/30/23 16:00 04/30/23 17:06 Temperature Pulse Rate 85 82 82 Respiratory Rate Blood Pressure Pulse Oximetry 92 Oxygen Delivery Mechanical Ventilation Fraction of Inspired Oxygen 55 04/30/23 16:00 04/30/23 16:00 04/30/23 17:16 Temperature 38.0 C H Pulse Rate Respiratory Rate Blood Pressure Pulse Oximetry 92 Oxygen Delivery Mechanical Ventilation Fraction of Inspired Oxygen 55 55 04/30/23 18:00 04/30/23 18:00 04/30/23 18:00 Temperature 38.1 C H Pulse Rate 81 81 81 Respiratory Rate 28 H 28 H Blood Pressure 103/65 103/65 Pulse Oximetry 91 Oxygen Delivery Fraction of Inspired Oxygen 04/30/23 18:00 04/30/23 18:00 04/30/23 18:00 Temperature Pulse Rate 81 81 81 Respiratory Rate 28 H 28 H Blood Pressure 103/65 Pulse Oximetry Oxygen Delivery Fraction of Inspired Oxygen 04/30/23 18:21 04/30/23 19:19 04/30/23 19:48 Temperature Pulse Rate 75 75 86 Respiratory Rate 28 H 28 H 28 H Blood Pressure 95/49 L 95/49 L Pulse Oximetry Oxygen Delivery Fraction of Inspired Oxygen 04/30/23 19:49 04/30/23 20:03 04/30/23 20:00 Temperature Pulse Rate 82 85 78 Respiratory Rate 28 H Blood Pressure Pulse Oximetry 92 Oxygen Delivery Mechanical Ventilation Fraction of Inspired Oxygen 55 04/30/23 20:00 04/30/23 2
[2023-05-01] MEDS: MIDAZOLAM 100MG/NS 100ML(*CRX) 100 MG/100 ML BAG 6 MG IV CONT (13:05)
--- NOTE | 2023-05-01 13:24 | PC.NURSE ---
U bed received. Room number 424. Report given to THERESA Alcaraz. Accepted by Dr. Colindres.
--- NOTE | 2023-05-01 14:06 | PC.NURSE ---
Fentanyl and Versed drips sent with patient and Air Evac Team. Levophed drip sent with patient.
--- NOTE | 2023-05-01 16:18 | PM.TDS ---
Transfer Discharge Sum: Prov Provider Date of admission: 04/27/23 06:30 Primary care physician: UNKNOWN,DOCTOR Admitting clinician: Rubén Benítez Ala, MD Attending physician on admission: Anant Jessica Consults: 04/27/23 Consult to Physician Routine Comment: Consulting Provider: Rigo Abbott Reason for consultation: intubated Has provider been notified: Yes Consult to Physician Routine Comment: spoke with Marla Crooks @[id number](ER,) Consulting Provider: Marla Crooks freight caller/MD group to consult: Cardiology Reason for consultation: VT Cardiac Arrest Has provider been notified: Yes 04/29/23 Consult to Physician Routine Comment: Consulting Provider: Dav Mckeon freight caller/MD group to consult: GI Reason for consultation: Upper GI bleed Has provider been notified: Yes 05/01/23 11:56 Consult to Physician Routine Comment: Spoke with and notified him of consult Consulting Provider: Ned Marquis freight caller/MD group to consult: Neurology Reason for consultation: Cardiac arrest, encephalopathy, anoxic injury Has provider been notified: Yes 05/01/23 12:11 Consult to Physician Routine Comment: Called office and notified them of consult Consulting Provider: Rubén Lopez freight caller/MD group to consult: Hematology/oncology Reason for consultation: Thrombocytopenia, thrombosis Has provider been notified: Yes Attending physician on discharge: Anant Jessica Discharging clinician: Anant Jessica Anticipated date of transfer: 05/01/23 Receiving physician/facility: [facility] DS: Admitting Diagnosis Discharge Date 05/01/23 Admitting Diagnosis 1. Cardiopulmonary arrest 2. Septic shock 3. GIB 4. Acute hypoxic respiratory failure 5. Aspiration Pneumonia DS: Discharge Diagnosis Discharge Diagnosis (1) Cardiac arrest: Code(s): I46.9 - Cardiac arrest, cause unspecified Status: Acute Assessment and Plan: It appears the patient presented at an EMS facility and collapsed. Received CPR and epinephrine. No documentation available and unknown down time. When arrived in the ER he was being bag ventilated V-tach with pulse. Difficult and prolonged intubation and required multiple times. Received amiodarone push which led to sinus bradycardia which was treated with atropine. Since then patient has been in sinus rhythm with intermittent junctional bradycardia. He has had runs of V-tach in the ER and in the ICU. -Differential diagnosis is broad. -CTA negative for PE -Serial troponins on admission consistent with non STEMI and echocardiogram does not show any significant abnormality -Aspirin and anticoagulation were held due to GI bleed -Beta-gail held due to shock -Amiodarone infusion was initiated but stopped due to worsening bradycardia and junctional bradycardia -Cardiology following -Echo as below -Treatment of sepsis and pneumonia as under -Urine drug screen positive for cocaine. Patient also has history of heavy alcohol and tobacco use -Treatment of respiratory failure and hypoxia as below -Status post target temperature management post cardiac arrest Monitor and treat electrolyte abnormalities 04/27 EKG shows junctional rhythm with nonspecific ST T-wave changes Will have Neurology evaluate the patient and obtain EEG once he is off the Nimbex infusion Echo 04/26 Summary ? 1. Technically somewhat challenging exam with patient on ventilator, definity contrast injected. ? 2. Normal appearing will left ventricular size and systolic contractility with normal ejection fraction. ? 3. Mildly sclerotic aortic valve otherwise no significant valvular dysfunction. ? 4. No pericardial. (2) Acute respiratory failure: Code(s): J96.00 - Acute respiratory failure, unspecified whether with hypoxia or hypercapnia Status: Acute Assessment and Plan: Acute respiratory failure secondary to cardiac arrest aspiration pneumonia which likely osullivan
[2023-05-03 22:22] LABS: Heparin Induced Platelet Antib Negative (Negative)
[2023-05-04 14:22] LABS: UFH SRA Result Interpretation Negative (Negative)
== END 2023-05-01 14:15 | disposition short-term general hospital (02) | DRG 720 ==
PROVIDERS: Internal Medicine; Internal Medicine Infectious Disease; Admitting Provider Internal Medicine; Visit Provider Internal Medicine
DX: A41.9 Sepsis, unspecified organism (principal); R65.21 Severe sepsis with septic shock; J96.01 Acute respiratory failure with hypoxia; J69.0 Pneumonitis due to inhalation of food and vomit; I21.4 Non-ST elevation (NSTEMI) myocardial infarction; I47.20 Ventricular tachycardia, unspecified; I46.9 Cardiac arrest, cause unspecified; G93.1 Anoxic brain damage, not elsewhere classified; K92.2 Gastrointestinal hemorrhage, unspecified; N17.9 Acute kidney failure, unspecified; E16.2 Hypoglycemia, unspecified; I73.9 Peripheral vascular disease, unspecified; D69.6 Thrombocytopenia, unspecified; M62.82 Rhabdomyolysis; E03.9 Hypothyroidism, unspecified; K31.84 Gastroparesis; F17.210 Nicotine dependence, cigarettes, uncomplicated; F14.20 Cocaine dependence, uncomplicated; F10.90 Alcohol use, unspecified, uncomplicated
CPT/HCPCS: 36415; 36600; 71045; 71250; 73206; 80048; 80053; 80307; 82310; 82375; 82533; 82550; 82805; 82948; 83050; 83605; 83735; 83880; 84100; 84145; 84439; 84443; 84484; 85025; 85027; 85055; 85384; 85610; 85730; 86022; 87040; 87070; 87086; 87205; 87641; 93005; 94002; 94003; 94640; A9270; C8929; C9113; J0613; J1610; J1644; J1720; J1940; J2250; J2543; J2765; J3010; J3430; J3480; J7030; J7121; P9045; P9047; Q9957; Q9967